=== PATIENT | female | born 1980 | race Caucasian/White ===

== ENCOUNTER 2024-11-03 07:36 | Outpatient (CLI) | payer OTHER, SELFPAY ==
--- NOTE | ~2024-11-03 | MR_ITS ---
EXAMINATION: MR brain/brain stem wo con DATE: 11/03/2024 09:58 INDICATION: Frequent headaches TECHNIQUE: Magnetic resonance imaging (MRI) of the brain and brainstem was performed without intraven ous contrast. Sequences included sagittal and axial T1-weighted SE, axial diffusion-weighted FS SE, a xial T2*-weighted GRE, axial T2-weighted FLAIR, and axial T2-weighted FSE. Apparent diffusion coeffic ient (ADC) maps were created. COMPARISON: None. FINDINGS: There are no areas of restricted diffusion to suggest acute infarction. No intracranial hemorrhage or abnormal intracranial mass lesion. Single small focus of nonspecific increased T2-weighted signal in tensity in the right frontal lobe white matter which is within normal limits for age. There are no in traparenchymal signal abnormalities seen on the other pulse sequences. The ventricles are symmetric a nd normal in size. There are no abnormal extra-axial fluid collections. Flow voids are seen in the ce rebral arteries on the T2-weighted sequences consistent with their expected patency. Right vertebral artery is dominant. Visualized orbits and soft tissues are unremarkable. Instrumented C5-C6 anterior spinal fusion. IMPRESSION: 1. Normal for age brain. No acute intracranial process. Reviewed, dictated and finalized at location B.
== END 2024-11-03 07:37 | disposition home or self-care (01) ==
PROVIDERS: Visit Provider Internal Medicine
DX: R51.9 Headache, unspecified (principal)
CPT/HCPCS: 70551

== ENCOUNTER 2024-11-17 16:30 | Emergency (ER) | payer OTHER, SELFPAY ==
--- OUTSIDE RECORDS SUMMARY | 2024-11-17 16:33 | XMS_ITS | Clinical Summary ---
Author Organization [facility] Address [address] [place] [address] Care Team Providers Care Literature Professor Name Role Phone Yordy Lundberg NP Primary Care Provider [phone] Allergies Active Allergy Reactions Criticality Noted Date Comments Tramadol Stomach upset High 08/27/2019 Cramping of the stomach. Medications topiramate (TOPAMAX) 25 mg tabletIndicatio ns:Other headache syndrome Take 1 tablet (25 mg total) by mouth nightly for 7 days, THEN 1 tablet (25 mg total) 2 (two) times a day for 7 days, THEN 2 tablets (50 mg total) 2 (two) times a day. 261 tablet 5 01/23/20 25 Active SUMAtriptan (IMITREX) 50 mg tabletIndicatio ns:Migraine Take 0.5 tablets (25 mg total) by mouth once as needed for migraine (headache) May repeat one time after 2 hours if needed. 9 tablet 5 5 11/10/19 26 Active levETIRAcetam (KEPPRA) 1,000 mg tablet Take 1,000 mg by mouth 2 (two) times a day. 11/10/19 25 Discontinu ed(Therapy completed) oxyCODONE-aceta minophen (PERCOCET) 5-325 mg per tabletIndicatio ns:Pain Take 1-2 tablets by mouth every 6 (six) hours as needed for pain (1 tablet for mild to moderate pain or 2 tablets for severe pain). 6 tablet 8 11/10/19 25 Discontinu ed(Therapy completed) ibuprofen (ADVIL,MOTRIN) 600 mg tablet Take 1 tablet (600 mg total) by mouth 3 (three) times a day as needed for pain. 30 tablet 8 11/10/19 25 Discontinu ed(Therapy completed) benzonatate (TESSALON) 200 mg capsule as needed 5 11/10/19 25 Discontinu ed(Therapy completed) HYDROcodone-marija taminophen (NORCO) 5-325 mg per tablet as needed 5 11/10/19 25 Discontinu ed(Alterna te therapy) methylPREDNISol one (MEDROL DOSEPACK) 4 mg Dosepack 5 11/10/19 25 Discontinu ed(Therapy completed) Active Problems Problem Noted Date Diagnosed Date Family history of colon cancer 05/29/2024 Encounter for screening colonoscopy 05/29/2024 Numbness and tingling of hand 09/23/2023 Encounters Date Type Department Care Team Description 11/16/2024 Telephone [facility] [address] [place] [address] 4th [address] [place] [phone] Sylvia Bear Med Refill 11/09/2024 10:[address] [facility] [address] [place] [id number] New daily persistent headache 11/09/2024 8:30 AM CDT Office [facility] [address] [place] [address] 4th [address] [place] [phone] Celine Oliver MD Other headache syndrome (Primary Dx); Closed fracture of skull, unspecified bone, initial encounter (HCC) 09/25/2024 9:00 AM CDT Lab [facility] Metabolism and Lipid [address] [place] [address] [place] [address] [place] [phone] Elevated antinuclear antibody (MC) level; Hair loss 09/25/2024 8:00 AM CDT Office Visit [facility] [address] [place] [address] [place] [address] Janette Ritter NP Hair loss (Primary Dx); Elevated antinuclear antibody (MC) level from Last 3 Months Surgical History Surgery Date Site/Laterality Comments CERVICAL FUSION NECK SURGERY 07/08/2016 - 07/07/2017 [place], [place] ANKLE SURGERY 07/08/2018 - 07/07/2019 Right [facility] ARM SURGERY 07/08/2019 - 07/07/2020 Right SAY[facility] Moore GALLBLADDER SURGERY 07/08/2023 - 07/07/2024 [place], [place] Medical History Medical History Date Comments Seizures (HCC) Family History Medical History Relation Name Comments Tuberculosis Brother Cancer Father Hypertension Father Relation Name Status Comments Brother Father Social History Tobacco Use Types Packs/Day Years Used Date Smoking Tobacco: Former Cigarettes 1 15 Smokeless Tobacco: Never Tobacco Cessation:Counseling Given: Not Answered Comments:Patient currently vapes. Hunger Vital Sign Answer Date Recorded Within the past 12 months, y ou worried that your food would run out before you got the money to buy more. Never true 11/10/19 25 Within the past 12 months, t he food you bought just didn't last and you didn't have money to get more. Never true 11/09/2024 Comments No Sex and Gender Information Value Date Recorded Sex Assigned at Not on file Legal Sex Female 4:32 AM CDT Gender Identity Not on file Sexual Orientation Not on file Obstetrics History Last Filed Vital Signs Vital Sign Reading Time Taken Comments Blood Pressure 112/81 11/09/2024 8:20 AM CDT Pulse 71 11/09/2024 8:20 AM CDT Temperature 36.7 C (98.1 F) 12/26/2017 4:36 AM CDT Respiratory Rate 16 11/09/2024 8:20 AM CDT Oxygen Saturation 98% 11/09/2024 8:20 AM CDT Inhaled Oxygen Concentration - - Weight 79.4 kg (175 lb) 11/09/2024 8:20 AM CDT Height 157.5 cm (5' 2 ) 11/09/2024 8:20 AM CDT Body Mass Index 32.01 11/09/2024 8:20 AM CDT Plan of Treatment Upcoming Encounters Date Type Department Care Team (Late st Contact Info) Description 12/18/2024 8:30 AM CDT Hospital Encounter [facility] [address] [place] [address] Dipika Deshpande MD [address] [place] [address] 12/18/2024 8:30 AM CDT - 12/18/2024 9:00 AM CDT Surgery [facility] [address] [place] [address] Dipika Deshpande MD [address] [place] [address] [address] [place] [address] COLONOSCOPY Scheduled Procedures Name Priority Associated Diagnoses Date/Ti me COLONOSCOPY Family history of colon cancer Encounter for screening colonoscopy 12/18/2024 8:30 AM CDT Health Maintenance Due Date Last Done Comments Breast Cancer Screening-Mammogram 1982 Cervical Cancer Screening 1982 Depression Screening 1982 Hepatitis C Screening 1982 Varicella Vaccines (1 of 2 - 13+ 2-dose series) 1995 DTaP/Tdap/Td Vaccine (5 - Tdap) 09/03/1997 09/02/1997, 05/28/1985, 07/31/1983, Additional history exists Regular Well Visit/Exam 18-64 2000 Influenza Vaccine (Season Ended) 2025 Hepatitis B Screening Completed 08/20/2000 , 04/17/2000, 02/12/2000 HPV Vaccines Aged Out No longer eligi ble based on patient's age to complete this topic Pneumococcal vaccine <65 Aged Out No longer eligible based on patient's age to complete this topic Procedures Procedure Name Priority Date/Time Associated Diagnosis Comments EGFR Routine 11/09/2024 10:34 AM CDT New daily persistent headache BASIC METABOLIC PANEL Routine 11/09/2024 10:34 AM CDT New daily persistent headache TSH Routine 09/25/2024 9:11 AM CDT Elevated antinuclear antibody (MC) level Hair loss from Last 3 Months Results * eGFR (11/09/2024 10:34 AM CDT) eGFR >90 >=60 mL/min/1. 73 m2 Comment: Interpretive Data Reference Interval Normal >/= 90 mL/min/1.73m2 Mildly decreased* 60 - 89 mL/min/1.73m2 Mildly to moderately decreased 45 - 59 mL/min/1.73m2 Moderately to severely decreased 30 - 44 mL/min/1.73m2 Severely decreased 15 - 29 mL/min/1.73m2 Kidney Failure < 15 mL/min/1.73m2 *Relative to young adult level Estimated glomerular filtration rate is determined by the 2020 CKD-EPI equation recommended by the National Kid[employer] (A Unifying Approach to GFR Estimation: Recommendations of the NKF-ASK Task Force on Reassessing the Inclusion of Race in Diagnosing Kidney Disease, JASN 2020). The CKD-EPI equation should not be used for patients with unstable renal function and has not been validated in children and those over 70. Current interpretive data was last reviewed 2021. Blood 11/09/2024 10:3 4 AM CDT 11/09/2024 11:53 AM CDT Celine Oliver MD LAB BLOOD ORDERABLES Fin al Result [facility] Department [place] [address] * Basic metabolic panel (11/09/2024 10:34 AM CDT) Sodium 140 135 - 145 mmol/L Potassium, pl 4.5 3.3 - 4.9 mmol/L [facility] Comment:Hemolyzed; Potassium value may be falsely elevated by as much as 0.3-0.5 mmol/L. Suggest redraw and reanalysis. Chloride 102 97 - 110 mmol/L [facility] CO2 29 22 - 32 mmol/L [facility] Anion gap 9 2 - 15 mmol/L [facility] BUN 15 6 - 25 mg/dL [facility] Creatinine 0.71 0.60 - 1.10 mg/dL [facility] Glucose 81 70 - 199 mg/dL [facility] Comment: Interpretive Data Fasting glucose >/= 126 mg/dl is diagnostic for diabetes. Fasting is defined as no caloric intake for at least 8 hours. Fasting glucose between 100 mg/dl to 125 mg/dl is diagnostic of prediabetes. In a patient with classic symptoms of hyperglycemia or hyperglycemic crisis, a random glucose >/= 200 mg/dl is diagnostic for diabetes. In the absence of unequivocal hyperglycemia, results should be confirmed by repeat testing. The classification and Diagnosis of Diabetes Diabetes Care 2021; 46: S19-S40. Current interpretive data was last revised 2022. Calcium 9.9 8.5 - 10.3 mg/dL [facility] Blood 11/09/2024 10:3 4 AM CDT 11/09/2024 11:49 AM CDT Narrative [facility] - 11/09/2024 12:24 PM CDT Has the patient fasted?->No us Celine Oliver MD LAB BLOOD ORDERABLES Fin al Result [facility] [place] [address] * TSH (09/25/2024 9:11 AM CDT) TSH (Thyrotropin) 0.93 0.27 - 4.20 uIU/mL [facility] Blood 09/25/2024 9:11 AM CDT 09/25/2024 9:31 AM CDT us Janette Ritter NP LAB BLOOD ORDERABLES Final Result [facility] from Last 3 Months Insurance [employer] [facility] HMO Care Teams Literature Professor Relationship Specialty Start Date End Date Yordy Lundberg NP [address] [place] [address] [place] [address] PCP - General Pain Management 05/26/24
--- OUTSIDE RECORDS SUMMARY | 2024-11-17 16:33 | XMS_ITS | Data Portability ---
[facility] Address [address] [place] [address] Assessment No assessment recorded. Plan of Treatment Reminders Order Date Submit Date Provider Last Modified By Organization Details Last Modified Time Details Appointments None recorded. Lab lh + FSH, serum 2023 024 [facility], [address] [place] [address], [address], [place], [address], 4 13:12:13 estradiol, serum 2023 024 [facility], [address] [place] [address], [address], [place], [address], 4 13:12:12 cytology report, thin prep, smear or scraping, cervical or vaginal 2023 024 [facility], [address] [facility], [address], [place], [address], 4 19:08:45 vaginal pathogens panel, FARA+probe, vaginal fluid 2023 024 [facility], [address] [facility], [address], [place], [address], 4 08:31:01 Referral orthopedic surgeon referral 2022 023 [facility], [address], [place], [address], 4 09:46:51 orthopedic surgeon referral 2022 023 [facility], [address], [place], [address], 3 12:43:44 employee communications specialist referral 2022 023 [email or web address] Stephon Ceron DPM, [address], [place], [address], 3 11:41:37 physical therapist referral 2021 022 [facility], [address] [place], [address], 3 16:37:48 bariatric surgery referral 2021 022 [email or web address] Kashif Graham, [address] [place], [address], 3 13:02:[address]/dietiti an referral [address] 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 Surgeries None recorded. Imaging MAMMO, diagnostic , digital, bilateral 2022 023 [facility]), [address] [place], [address], 3 13:05:54 Medication Orders metronidaz ole 500 mg tablet 2023 024 [facility], [address] [place], [place], [id number], 4 13:44:59 fluticason e propionate 50 mcg/actuat ion nasal spray,susp ension 2022 023 [facility], [address] [place], [place], [id number], 4 16:29:14 Sinus Wash Neti Pot with packet 2022 023 [facility], [address] [place] [address], [id number], 3 13:01:45 ibuprofen 800 mg tablet 2022 023 [facility], [address] [place] [address], [id number], 3 13:22:27 ibuprofen 800 mg tablet 2021 022 [facility], [address] [place] [address], [id number], 2 13:31:21 cyclobenza magno 5 mg tablet 2021 022 [facility], [address] [place] [address], [id number], 3 11:43:17 levetirace lowery 500 mg tablet 2021 022 [facility], [address] [place] [address], [id number], 2 13:31:20 Patient TargetsNo targets recorded. Patient Instructions Encounter Date Encounter Id Patient Instructions Last Modified By Organization Details Last Modified Time 02/05/2022 [id number] neck pain: care instructions [email or web address] Not available 02/05/2022 13:27:31 epilepsy: care instructions [email or web address] Not available 02/05/2022 13:27:31 abnormal weight gain: care instructions [email or web address] Not available 02/05/2022 13:27:31 11/12/2022 [id number] A healthy lifestyle: care instructions [email or web address] Not available 11/12/2022 12:01:10 06/18/2023 [id number] When You Want to Lose Weight: Care Instructions [email or web address] Not available 06/18/2023 12:46:31 A healthy lifestyle: care instructions [email or web address] Not available 06/18/2023 12:46:31 08/12/2023 [id number] bacterial vaginosis: care instructions [email or web address] Not available 08/12/2023 13:25:31 body mass index: care instructions Not available 08/12/2023 13:25:31 learning about healthy weight Not available 08/12/2023 13:25:31 Reason for Referral Bariatric Surgery Referral f or Abnormal weight gain Referring Physician: [facility], Encounter Date: 02/05/2022 Securities Dealer/dietitian Refer ral for Abnormal weight gain Obesity Referring Physician: [facility], Encounter Date: 02/05/2022 Physical Therapist Referral for Neck pain Chronic neck pain Referring Physician: [facility], Encounter Date: 02/05/2022 Financial Services Manager Referral for Pain in toe Pain left great toe Referring Physician: [facility], Encounter Date: 11/12/2022 Orthopedic Surgeon Referral for History of fracture pain/swelling post ankle fracture repair Referring Physician: [facility], Encounter Date: 03/26/2023 Orthopedic Surgeon Referral for Pain of joint of wrist Referring Physician: [facility], Encounter Date: 06/18/2023 Results Created Date Observation Date Name Description Value Unit Range Abnormal Flag Note LastModifiedBy Organization Detail LastModifiedTime 08/12/19 24 08/14/2023 NUA B VAGIN ITIS PLUS (VG+) atopobium vaginae Low - 0 score Not Available [facility] ([facility]) [address], [place], [address], 08/14/2023 08:31:01 08/12/19 24 08/14/2023 NUSWA B VAGIN ITIS PLUS (VG+) bvab 2 Low - 0 score Not Available [facility] ([facility]) [address], [place], [address], 08/14/2023 08:31:01 08/12/19 24 08/14/2023 NUSWA B VAGIN ITIS PLUS (VG+) megasphaera 1 Low - 0 score Calcu late total score by denise martell the 3 indiv idual bacte rial vagin osis (BV) marke r score s toget her. Total score is inter prete d as follo ws: Total score 0-1: Indic ates the absen ce of BV. Total score 2: Indet ermin ate for BV. Addit ional clini felipa data shoul d be evalu ated to estab star a diagn osis. Total score 3-6: Indic ates the prese nce of BV. This test was devel oped and its perfo rmanc e toma cteri stics deter mined by [employer]. It has not been clear ed or appro elham by the Food and Drug Admin istra tion. Not Available [facility] ([facility]) [address] [place], [address], 08/14/2023 08:31:01 08/12/19 24 08/14/2023 NUSWA B VAGIN ITIS PLUS (VG+) rody albicans, FARA Negati ve negati ve Not Available [facility] ([facility]) [address] [place], [address], 08/14/2023 08:31:01 08/12/19 24 08/14/2023 NUSWA B VAGIN ITIS PLUS (VG+) rody glabrata, FARA Negati ve negati ve Not Available [facility] ([facility]) [address] [place], [address], 08/14/2023 08:31:01 08/12/19 24 08/14/2023 NUSWA B VAGIN ITIS PLUS (VG+) trich vag by FARA Negati ve negati ve Not Available [facility] ([facility]) [address] [place], [address], 08/14/2023 08:31:01 08/12/19 24 08/14/2023 NUSWA B VAGIN ITIS PLUS (VG+) chlamydia trachomatis, FARA Negati ve negati ve Not Available [facility] ([facility]) [address], [place], [address], 08/14/2023 08:31:01 08/12/19 24 08/14/2023 NUSWA B VAGIN ITIS PLUS (VG+) neisseria gonorrhoeae, FARA Negati ve negati ve Not Available [facility] ([facility]) [address], [place], [address], 08/14/2023 08:31:01 08/12/19 24 08/13/2023 IGP, APTIM A HPV, RFX 16/18 ,45 HPV aptima Negati ve negati ve This nucle ic acid ampli ficat ion test detec ts fourt een high- risk HPV types (16,1 8,31, 33,35 ,39,4 5,51, 52,56 ,58,5 9,66, 68) witho ut diffe renti ation . Not Available [facility] ([facility]) [address], [place], [address], 08/14/2023 19:08:45 08/12/19 24 08/14/2023 IGP, APTIM A HPV, RFX 16/18 ,45 diagnosis: Commen t NEGAT RAFAEL FOR INTRA EPITH ELIAL LESIO N OR STEFANY SARABIA . Not Available [facility] ([facility]) [address], [place], [address], 08/14/2023 19:08:45 08/12/19 24 08/14/2023 IGP, APTIM A HPV, RFX 16/18 ,45 specimen adequacy: Commen t Satis facto ry for evalu ation . Endoc ervic al and/o r squam ous metap lasti c cells (endo cervi felipa compo nent) are prese nt. Not Available [facility] ([facility]) [address], [place], [address], 08/14/2023 19:08:45 08/12/19 24 08/14/2023 IGP, APTIM A HPV, RFX 16/18 ,45 clinician provided ICD10: Radha morgan R23.2 Z01.4 11 Not Available [facility] ([facility]) [address] [place], [address], 08/14/2023 19:08:45 08/12/19 24 08/14/2023 IGP, APTIM A HPV, RFX 16/18 ,45 performed by: Radha maldonado, Jonas morgan (ASCP ) Not Available [facility] ([facility]) [address] [place], [address], 08/14/2023 19:08:45 08/12/19 24 08/14/2023 IGP, APTIM A HPV, RFX 16/18 ,45 . . Not Available [facility] ([facility]) [address] [place], [address], 08/14/2023 19:08:45 08/12/19 24 08/14/2023 IGP, APTIM A HPV, RFX 16/18 ,45 note: Radha morgan The Pap smear is a scree kyle test desig mayra to aid in the detec tion of chevy ligna nt and malig nant condi tions of the uteri ne cervi x. It is not a diagn ostic proce dure and shoul d not be used as the sole means of detec ting cervi felipa cance r. Both false -posi tive and false -nega tive repor ts do occur . Not Available [facility] ([facility]) [address] [place], [address], 08/14/2023 19:08:45 08/12/19 24 08/14/2023 IGP, APTIM A HPV, RFX 16/18 ,45 HPV genotype reflex Radha morgan Crite sarah not met, HPV Genot ype not perfo rmed. Not Available [facility] ([facility]) [address] [place], [address], 08/14/2023 19:08:45 08/13/19 24 08/14/2023 ESTRA DIOL estradiol 195.0 pg/mL Adult Femal e Range Folli cular phase 12.5 - 166.0 Ovula tion phase 85.8 - 498.0 Lutea l phase 43.8 - 211.0 Postm enopa usal <6.0 - 54.7 Pregn milana 1st trime ster 215.0 - >4300 .0 Carl ECLIA metho dolog y Not Available [facility] ([facility]) [address] [place], [address], 08/14/2023 13:12:12 08/13/19 24 08/14/2023 FSH AND LH LH 7.7 mIU/m L Adult Femal e Range Folli cular phase 2.4 - 12.6 Ovula tion phase 14.0 - 95.6 Lutea l phase 1.0 - 11.4 Postm enopa usal 7.7 - 58.5 Not Available [facility] ([facility]) [address] [place], [address], 08/14/2023 13:12:12 08/13/19 24 08/14/2023 FSH AND LH FSH 3.6 mIU/m L Adult Femal e Range Folli cular phase 3.5 - 12.5 Ovula tion phase 4.7 - 21.5 Lutea l phase 1.7 - 7.7 Postm enopa usal 25.8 - 134.8 Not Available [facility] ([facility]) [address] [place], [address], 08/14/2023 13:12:12 04/12/20 23 04/12/2023 raine NEWMAN No observ ation record ed. [facility] [address] [place], [address], 04/16/2023 08:51:27 04/12/20 23 04/12/2023 MAMMO , diagn ostic , digit al, bilat eral No observ ation record ed. [address] [place], [address], 04/12/2023 21:21:12 01/24/20 24 01/24/2024 XR, ankle No observ ation record ed. [address] [place], [address], 01/25/2024 13:04:47 Result Notes None recorded. Problems Name Problem SNOMED Code Status Onset Date Resolution Date Notes Provider Name and Address Organization Details Recorded Time Seizure disorder 368248352 Active 2020 Le Parikh MD Attn: Jay martell,[address] [place], [address], [place] [facility] 15:05:11 Paresthes ia 25729879 Active 2020 Le Parikh MD Attn: Jay martell,[address] [place], [address], [place] [facility] 15:05:33 Pain of joint of wrist 260390356 Active 2020 Le Parikh MD Attn: Jay martell,[address] [place], [address], [place] [facility] 15:05:53 Eruption 285330827 Active 2020 inguinal region Le Parikh MD Attn: Jay martell,[address] [facility], [place], [address], [place] 15:07:26 Gastroeso phageal reflux disease 994646365 Active 2020 Le Parikh MD Attn: Jay martell,[address] [place], [address], [place] [facility] 15:08:38 Abnormal weight gain 172669718 Active 2020 Le Parikh MD Attn: Accountin g,[address] [facility], [place], [address], [place] [facility] 15:14:43 Fatigue 68344873 Active 2020 Le Parikh MD Attn: Accountin g,[address] [facility], [place], [address], [place] [facility] 1 15:15:18 Insomnia 795085564 Active 2020 Le Parikh MD Attn: Accountin g,[address] [facility], [place], [address], [place] [facility] 15:17:03 Overweigh t 536258485 Active 2020 Le Parikh MD Attn: Accountin g,[address] [facility], [place], [address], [place] [facility] 15:22:22 Medicatio n monitorin g Active 2020 Le Parikh MD Attn: Accountin g,[address] [facility], [place], [address], [place] [facility] 1 10:33:12 History of substance abuse 821736514 Active 2021 Le Parikh MD Attn: Accountin g,[address] [facility], [place], [address], [place] [facility] 2 17:00:35 Obesity 352039406 Active 2021 Le Parikh MD Attn: Accountin g,[address] [facility], [place], [address], [place] [facility] 2 17:07:57 Neck pain 91254445 Active 2021 Le Parikh MD Attn: Accountin g,[address] [facility], [place], [address], [place] [facility] 2 13:22:56 Pain in toe 903553304 Active 2022 Le Parikh MD Attn: Jay martell,[address], [place], [address], [place] [facility] 3 11:58:18 Mass of right breast 612765732357 76827 Active 2022 Le Parikh MD Attn: Jay martell,[address] [facility], [place], [address], [facility] - [facility] 3 12:37:08 History of fracture 847348322 Active 2022 Right ankle Le Parikh MD Attn: Jay martell,[address] [facility], [place], [address], [facility] - [facility] 3 12:41:13 Nasal congestio n 11570459 Active 2022 Le Parikh MD Attn: Jay martell,[address] [facility], [place], [address], [facility] - [facility] 3 12:48:09 Problem Notes None recorded. Procedures Surgical History None recorded. Imaging Results Imaging Date Name Status LastModified by Organiz ation Details LastModified Time 04/12/2023 US, breast completed [facility] [address] [place], [address], 04/16/2023 08:51:27 04/12/2023 MAMMO, diagnostic, digital, bilateral completed [address] [place], [address], 04/12/2023 21:21:12 01/24/2024 XR, ankle completed [address] [place], [address], 01/25/2024 13:04:47 Procedure Notes None recorded. Medical Equipment None Reported. Allergies No known drug allergies Medications Name Sig Start Date Stop Date Status Note LastModified by Organization Details LastModified Time amoxicillin 500 mg capsule TAKE 1 CAPSULE BY MOUTH 4 TIMES DAILY UNTIL FINISHED active Not Available Not Available No t Available venlafaxine ER 37.5 mg capsule,ext ended release 24 hr 04/03 completed Not Available Not Available Not Available acetaminoph en 325 mg tablet PLEASE SEE ATTACHED FOR DETAILED DIRECTION S active Not Available Not Available No t Available prednisone 10 mg tablet 04/03 completed Not Available Not Available Not Available venlafaxine ER 75 mg capsule,ext ended release 24 hr 08/07 completed Not Available Not Available Not Available lamotrigine 200 mg tablet 04/03 completed Not Available Not Available Not Available clindamycin HCl 300 mg capsule Take 1 capsule every 6 hours by oral route after meals for 7 days. 02/05 completed Not Available Not Available Not Available trazodone 50 mg tablet 08/07 completed Not Available Not Available Not Available polyethylen e glycol 3350 17 gram oral powder packet 04/03 completed Not Available Not Available Not Available cetirizine 10 mg tablet 04/03 completed Not Available Not Available Not Available azithromyci n 250 mg tablet TAKE 2 TABLETS BY MOUTH TODAY, THEN TAKE 1 TABLET DAILY FOR 4 DAYS 02/05 completed Not Available Not Available Not Available ibuprofen 800 mg tablet TAKE 1 TABLET BY MOUTH EVERY 6 TO 8 HOURS NEEDED active Not Available Not Available No t Available fluconazole 150 mg tablet 11/12 completed Not Available Not Available Not Available levetiracet am 500 mg tablet TAKE ONE TABLET BY MOUTH EVERY DAY active Not Available Not Available No t Available meloxicam 15 mg tablet TAKE 1 TABLET BY MOUTH EVERY DAY active Not Available Not Available No t Available sucralfate 1 gram tablet 04/03 completed Not Available Not Available Not Available quetiapine 200 mg tablet 04/03 completed Not Available Not Available Not Available venlafaxine ER 150 mg capsule,ext ended release 24 hr 08/07 completed Not Available Not Available Not Available penicillin V potassium 500 mg tablet TAKE ONE TABLET BY MOUTH FOUR TIMES DAILY FOR 7 DAYS 11/12 completed Not Available Not Available Not Available metronidazo le 500 mg tablet TAKE ONE TABLET BY MOUTH EVERY TWELVE HOURS FOR 7 DAYS active Not Available Not Available No t Available omeprazole 40 mg capsule,del ayed release Take 1 capsule every day by oral route before meals. 04/03 completed Not Available Not Available Not Available tramadol 50 mg tablet TAKE 1 TABLET BY MOUTH EVERY 6 HOURS NEEDED active Not Available Not Available No t Available quetiapine 100 mg tablet 04/03 completed Not Available Not Available Not Available amoxicillin 500 mg tablet TAKE 1 TABLET BY MOUTH TWICE A DAY WITH FOOD UNTIL GONE 02/05 completed Not Available Not Available Not Available ketorolac 10 mg tablet Take 1 tablet every 6 hours by oral route as needed for 5 days. 11/12 completed Not Available Not Available Not Available risperidone 2 mg tablet 08/07 completed Not Available Not Available Not Available levetiracet am 250 mg tablet 04/03 completed Not Available Not Available Not Available pantoprazol e 40 mg tablet,francesco yed release TAKE 1 TABLET BY MOUTH EVERY DAY active Not Available Not Available No t Available oseltamivir 75 mg capsule TAKE 1 CAPSULE BY MOUTH TWICE A DAY active Not Available Not Available No t Available nystatin 100,000 unit/gram topical cream APPLY TO THE AFFECTED AREA(S) BY TOPICAL ROUTE 2 TIMES PER DAY 04/03 completed Not Available Not Available Not Available hydroxyzine HCl 25 mg tablet 04/03 completed Not Available Not Available Not Available acetaminoph en 300 mg-codeine 60 mg tablet 11/17 completed Not Available Not Available Not Available zolpidem 5 mg tablet Take 1 tablet every day by oral route at bedtime. 04/03 completed Not Available Not Available Not Available hydroxyzine HCl 10 mg tablet 04/03 completed Not Available Not Available Not Available fluticasone propionate 50 mcg/actuati on nasal spray,suspe nsion Two puffs in each nostril daily 2022 active Not Available Not Available Not Avai lable risperidone 1 mg tablet 04/03 completed Not Available Not Available Not Available amoxicillin 875 mg-alison m clavulanate 125 mg tablet TAKE 1 TABLETBY MOUTH 2 TIMES A DAY X 7 DAYS active Not Available Not Available No t Available oxycodone 5 mg tablet TAKE 1 TABLET BY MOUTH EVERY 4 HOURS NEEDED FOR MODERATE PAIN (PAIN SCALE 4 TO 6) active Not Available Not Available No t Available hydroxyzine pamoate 25 mg capsule 04/03 completed Not Available Not Available Not Available neomycin-po lymyxin-hyd rocort 3.5 mg-10,000 unit/mL-1 % ear drops,susp INSTILL 3 DROPS IN BOTH EARS 4 TIMES A DAY FOR 7 DAYS active Not Available Not Available No t Available Daily-Bozena tablet 04/03 completed Not Available Not Available Not Available cyclobenzap rine 5 mg tablet TAKE ONE TABLET BY MOUTH THREE TIMES DAILY NEEDED 11/12 completed Not Available Not Available Not Available nitrofurant oin monohydrate /macrocryst als 100 mg capsule 04/03 completed Not Available Not Available Not Available duloxetine 30 mg capsule,del ayed release 04/03 completed Not Available Not Available Not Available duloxetine 60 mg capsule,del ayed release 04/03 completed Not Available Not Available Not Available chlorhexidi ne gluconate 0.12 % mouthwash 11/17 completed Not Available Not Available Not Available quetiapine 50 mg tablet 04/03 completed Not Available Not Available Not Available quetiapine ER 150 mg tablet,exte nded release 24 hr 04/03 completed Not Available Not Available Not Available Sinus Wash Neti Pot with packet Use one packet twice daily three times a week x 1 month 2022 active Not Available Not Available Not Avai lable Daily-Bozena (with folic acid) 400 mcg tablet 11/12 completed Not Available Not Available Not Available Vitals Date Recorded Body height Body mass index (BMI) Body weight Body temperature Heart rate Oxygen saturation Oxygen saturation in Arterial blood by Pulse oximetry Systolic blood pressure Diastolic blood pressure Provider Name and Address Organization Details Last Updated DateTime 2 157.48 cm 34 kg/m2 91444.1 8 g 98.1 [degF] 79 /min 98 % 98 % 96 mm[Hg] 64 mm[Hg] Ramonita Sewell MA [facility] 2 12:22:01 Date Recorded Body height Body mass index (BMI) Body weight Body temperature Oxygen saturation Oxygen saturation in Arterial blood by Pulse oximetry Heart rate Systolic blood pressure Diastolic blood pressure Provider Name and Address Organization Details Last Updated DateTime 3 157.48 cm 33.7 kg/m2 09501 g 98 [degF] 98 % 98 % 83 /min 100 mm[Hg] 68 mm[Hg] Ramonita Sewell MA [facility] 3 11:48:06 Date Recorded Body height Body mass index (BMI) Body weight Heart rate Oxygen saturation Oxygen saturation in Arterial blood by Pulse oximetry Systolic blood pressure Diastolic blood pressure Provider Name and Address Organization Details Last Updated DateTime 3 157.48 cm 32 kg/m2 48536.6 6 g 88 /min 98 % 98 % 101 mm[Hg] 70 mm[Hg] Kimberley Zepeda MA [facility] 3 12:26:50 Date Recorded Body height Body mass index (BMI) Body weight Heart rate Body temperature Oxygen saturation Oxygen saturation in Arterial blood by Pulse oximetry Systolic blood pressure Diastolic blood pressure Provider Name and Address Organization Details Last Updated DateTime 3 157.48 cm 33.3 kg/m2 94858.8 1 g 73 /min 98 [degF] 98 % 98 % 110 mm[Hg] 76 mm[Hg] Ramonita Sewell MA [facility] 3 12:31:08 Date Recorded Body height Body mass index (BMI) Body weight Provider Name and Address Organization Details Last Updated DateTime 08/07/2023 157.48 cm 33.5 kg/m2 13723.4 g Stephy Obrien MA [facility] 08/07/2023 14:14:08 Date Recorded Body height Body mass index (BMI) Body weight Body temperature Oxygen saturation Oxygen saturation in Arterial blood by Pulse oximetry Heart rate Systolic blood pressure Diastolic blood pressure Provider Name and Address Organization Details Last Updated DateTime 4 157.48 cm 32.5 kg/m2 19542.6 5 g 98.1 [degF] 98 % 98 % 66 /min 112 mm[Hg] 66 mm[Hg] Stephy Obrien MA [facility] 4 12:51:04 Social History Question Answer Notes LastModified by Organizat ion Details LastModified Time Tobacco Smoking Status Never Smoker Ramonita Sewell MA null, [facility] 11/17/2020 14:12:07 What Was The Date Of Your Most Recent Tobacco Screening? 08/12/2023 [email or web address] Information not available 08/12/2023 Has Tobacco Cessation Counseling Been Provided? No Information not available 11/12/2022 Sex: Female Functional Status Question Answer Note LastModified by Organization D etails LastModified Time Do you or have you ever used any other forms of tobacco or nicotine? No Information not available 11/12/2022 Mental Status None recorded. Family History Relationship Description Onset Age of this Age Resolved Age Notes LastModified by Organization Details LastModified Time Sister Diabetes mellitus [email or web address] Not available 2020 14:13:47 Medical History No medical history recorded. Gynecological History Statement/Question Response Flow Light Date of LMP 08/07/2023 Menses Monthly Y Duration of Flow (days) 4 Age at Menarche 19 Current Control Method Tubal Ligat ion Age at First Child 29 LMP Definite Obstetrics History GPAL:G 2 P 2 0 0 2 Type Value Full Term 2 Living 2 Total 2 Immunizations Vaccine Type Date Status Note Provider Nam e and Address Organization Details Recorded Time MMR 4 completed Stephy Obrien, [place], [place] [facility] 08/07/2023 14:06:06 DTP 4 completed Stephy Obrien, [place] [facility] 08/07/2023 14:06:06 DTP 3 completed Stephy Obrien, [place] [facility] 08/07/2023 14:06:06 DTP 3 completed Stephy Obrien, [place] - [facility] 08/07/2023 14:06:06 DTP 5 completed Stephy Obrien[place], [place] [facility] 08/07/2023 14:06:06 OPV 4 completed Stephy Ob[place], [place] [facility] 08/07/2023 14:06:06 OPV 3 completed Stephy Obrien, [place] [facility] 08/07/2023 14:06:06 OPV 3 completed Stephy Obrien, [place] - [facility] 08/07/2023 14:06:06 OPV 3 completed Stephy Obrien, [place] [facility] 08/07/2023 14:06:06 OPV 5 completed Stephy Obrien, [place] - [facility] 08/07/2023 14:06:06 Td (adult), 2 Lf tetanus toxoid, preservative free, adsorbed 8 completed Stephytete Obrien CHRISTIANA null, [place] - [facility] 08/07/2023 14:06:06 Hep B, adolescent or pediatric 1 completed Stephy Obrien CHRISTIANA null, [place] - [facility] 08/07/2023 14:06:06 Hep B, adolescent or pediatric 0 completed Stephy Obrien CHRIST[place]NA null, [place] - [facility] 08/07/2023 14:06:06 Hep B, adolescent or pediatric 0 completed Stephy Obrien CHRISTIANA null, [place] - [facility] 08/07/2023 14:06:06 Past Encounters Encounter ID Performer Location Encounter Start Date Encounter Closed Date Diagnosis/Indication Diagnosis SNOMED-CT Code Diagnosis ICD10 Code Diagnosis Note [id number] MD Amrit Mcgarry (Adult Med) [address] [place] [address]383-867 0 11/17/2020 13:38:08 11/21/2020 17:56:13 Pain of joint of wrist 863834124 M25.539 Seizure disorder 0181632 02 G40.909 Paresthesia 60426199 R20 .2 Eruption 783237612 R21 Gastroesop hageal reflux disease 929765204 K21.9 Abnormal weight gain 161 229303 R63.5 Fatigue 23868176 R53.83 Insomnia 404840767 G47.0 0 Overweight 601466177 E66 .3 [id number] MD Amrit Mcgarry (Adult Med) [address] [place] [address] 29146-951 0 03/30/2021 10:05:38 03/30/2021 12:28:17 [id number] MD Amrit Mcgarry (Adult Med) [address] [place] [address] 58292-721 0 04/03/2021 09:44:54 04/04/2021 12:15:27 Medication monitoring 210070443 Z51.81 [id number] MD Amrit Mcgarry (Adult Med) [address] [place] [address]55-992 0 07/18/2021 16:05:47 07/21/2021 11:52:26 History of substance abuse 406348280 F19.21 Pain of kartik int of wrist 964246864 M25.539 Obesity 651177546 E66.9 [id number] MD Amrit Harvey (Adult Med) [address] [place] [address] 50753-862 0 08/07/2021 16:52:10 08/07/2021 19:51:08 Cellulitis 220730036 L03.90 Tenderness on the left arm pit , but no definitive nodule or open drainage., discussed with patient , she agreed to try abs and pain pill a ordered. Avoid shaving for the mean time. She agreed to keep this office informed. in a few days. Carpal sirena afsaneh syndrome 41537112 G56.03 Wants cortisone shoot on the wrists today, but in light of possble cellulitis of left arm pit , advised to hold off cortisone shoot. [id number] MD Amrit Mcgarry (Adult Med) [address] [place] [address]67-415 0 02/05/2022 11:50:22 02/06/2022 12:02:35 Abnormal weight gain 079446293 R63.5 Neck pain 28018944 M54.2 Seizure disorder 8016140 02 G40.705 [id number] MD Amrit Mcgarry (Adult Med) [address] [place] [address] 60756-194 0 11/12/2022 11:32:10 11/20/2022 11:41:37 Obesity 467575276 E66.9 Pain in toe 991682634 M7 9.645 [id number] MD Amrit Mcgarry (Adult Med) [address] [place] [address] 31107[address]447 0 03/26/2023 12:12:38 03/28/2023 16:10:45 Neck pain 89021562 M54.2 Mass of right breast 107 9186557 5353416 N63.10 History of fracture 3910 57341 Z87.81 [id number] MD Amrit Mcgarry (Adult Med) [address] [place] [address] 06/18/2023 11:55:40 06/19/2023 16:19:56 Obesity 714469474 E66.9 Pain of kartik int of wrist M25.539 Nasal congestion 1723362 0 R09.81 [id number] Sweetie Jones MD [facility] (Adult Med) [address] [place] [address] 08/12/2023 12:26:02 08/14/2023 16:22:12 Non-menopausal hot flash 2912105400 37706 R23.2 Patient having hot flashes daily and waking up drenched in sweatWill test hormone levels today Routine gy necologic examination done 9410421739 9101 Z01.411 Sample taken for PAPWill call patient with resultsMam mogram due in 04/2024 Vaginal discharge 861867 006 N89.8 Take your antibiotic s as directed. Do not stop taking them just because you feel better. You need to take the full course of antibiotic s. Do not eat or drink anything that contains alcohol if you are taking metronidaz ole or tinidazole . Keep using your medicine if you start your period. Use pads instead of tampons while using a vaginal cream or suppositor y. Tampons can absorb the medicine. Wear loose cotton clothing. Do not wear nylon and other materials that hold body heat and moisture close to the skin. Do not scratch. Relieve itching with a cold pack or a cool bath. Do not wash your vaginal area more than once a day. Use plain water or a mild, unscented soap. Do not douche. Body mass index 30+ - obesity 128663492 Z68.32 BMI 32.5 Depression screening 171 575652 Z13.31 PHQ9- {{Negative Positive Mild Moder ate* Sever e}} (12 out of 27) Mental hea lth screening 968925124 Z13.39 GAD7- {{Negative Positive Mild Moder ate Severe *}} (15 out of 21) Health Concerns Section Related Observation LastModified by Organization Detai ls LastModified Time None Recorded Concern Status LastModified by Organization Details LastModified Time None Recorded Advance Directives Directive None Recorded Payers Encounter Date Sequence Insurance Name Policy Number Policy [place] Covered Member ID [place] Member ID Guarantor Name 02/05/2022 1 [employer] [place] AFTER 2020 (MEDICAID REPLACEMENT - HMO) Melanie Bolaños [id number] Melanie Bolaños 11/12/2022 1 [employer] [place] 2020 [place] - [place]MO) Melanie Bolaños [id number] Melanie Bolaños 03/26/2023 1 [employer] 2020 [place] - [place]MO) Melanie Bolaños [id number] Melanie Bolaños 06/18/2023 1 [employer] [place] 2020 [place] - [place]MO) Melanie Bolaños [id number] Melanie Bolaños 08/12/2023 2 [place] [facility] PUBLIC AID Melanie Bolaños [id number] Melanie Bolaños 08/12/2023 1 [employer] [id number] Melanie L Robin [id number] Melanie Bolaños Notes Date Note Type Note Provider Name and Address Organization Details Recorded Time 02/05/2022 text/html Right side of ne ck more painful. Pain radiates to upper back. Wants referral to bariatric surgeon Le Parikh MD Attn: [address] [place], [address], [facility] 02/05/2022 13:34:02 11/12/2022 text/html Two week history of pain in left great toe relieved by raising nail. Le Parikh MD Attn: [employer]ing[address] [place], [address], [facility] 11/12/2022 12:02:21 03/26/2023 text/html Tiny knot on rig ht that comes and goes for the past six months. Leaves discolouration on overlying skin. Requests med refill Le Parikh MD Attn: [employer]ing[address] [place], [address], [facility] 03/26/2023 13:10:34 06/18/2023 text/html Wants cortisone shots in her wrists. Has hard material that comes out of her nostrils periodically Le Parikh MD Attn: [address]ing[address] [facility], [place], [address], [facility] 06/18/2023 12:54:32 08/12/2023 text/html 43-year-old female here for Pap. Patient states does not remember when her last pap was, but states that she has never had an abnormal one. Patient does state that she had treatment for genital warts at age 20 but has never had an outbreaks since.Patient is c/o vaginal odor that has come up about 3 times in the last year. Denies having any discharge. She is also c/o sweating a lot in her vaginal area. She is also c/o hot flashes during the day. Has had irregular menses that only last a couple of days, last one was only 1 day long.Patient does state that her boyfriend does have some scab on his penis but he has not gotten checked. JOSE M MENEZES PA-C Attn: [address] [facility], [place], [address], [facility] 08/12/2023 13:25:56 OBGyn Episode No OBEpisode recorded.
--- OUTSIDE RECORDS SUMMARY | 2024-11-17 16:33 | XMS_ITS | Referral Summary ---
Author Organization [facility] Address [address] [place] [address] Care Team Providers Care Plant Protection Officer Name Role Phone Yordy Lundberg NP Primary Care Provider [phone]- [phone] Encounters Date Type Department Care Team Description 11/16/2024 Telephone [facility] [address] [place] [address] [facility] [address] [place] [phone] Sylvia Bear Med Refill 11/09/2024 10:15 AM CDT Lab [facility] [address] [place] [address] [place] [address] New daily persistent headache 11/09/2024 8:30 AM CDT Office [facility] [address] [place] [address] [facility] Floor [address] [place] [phone] Celine Oliver MD Other headache syndrome (Primary Dx); Closed fracture of skull, unspecified bone, initial encounter (HCC) 09/25/2024 9:00 AM CDT Lab [facility] Endocrinology Metabolism and Lipid [address] [place] [address] [place] [phone] Elevated antinuclear antibody (MC) level; Hair loss 09/25/2024 8:00 AM CDT Office Visit [facility] Rheumatology [facility] [address] [place] [phone] Janette Ritter NP Hair loss (Primary Dx); Elevated antinuclear antibody (MC) level from Last 3 Months Allergies Active Allergy Reactions Criticality Noted Date [...] 05/29/2024 Numbness and tingling of hand 09/23/2023 Social History Tobacco Use Types Packs/Day Years [...] on file Sexual Orientation Not on file Last Filed Vital Signs Vital Sign Reading [...] Description 12/18/2024 8:30 AM CDT Hospital Encounter [address] [address] Dipika Deshpande MD [address] [facility] [place] [address] 12/18/2024 8:30 AM CDT - 12/18/2024 9:00 AM CDT Surgery [address] [address]Dipika Abernathy MD [address] [facility] [place] [address] COLONOSCOPY Scheduled Procedures Name Priority Associated Diagnoses Date/Ti me COLONOSCOPY Family history of colon cancer Encounter for screening colonoscopy 12/18/2024 8:30 AM CDT Procedures Procedure Name Priority Date/Time Associated Diagnosis [...] of Race in Diagnosing Kidney Disease, JASN 202). The CKD-EPI equation should not be used for patients with unstable renal function and has not been validated in children and those over 70. Current interpretive data was last reviewed 2021. Blood 11/09/2024 10:3 4 AM CDT 11/09/2024 11:53 AM CDT us Celine Oliver MD LAB BLOOD ORDERABLES Fin al Result [facility] Department [place] [address] * Basic metabolic panel (11/09/2024 10:34 AM CDT) Pathologist [facility] Sodium 140 135 - 145 mmol/L Potassium, pl 4.5 3.3 - 4.9 mmol/L [facility] Comment:Hemolyzed; Potassium value may be falsely elevated by as much as 0.3-0.5 mmol/L. Suggest redraw and reanalysis. Chloride 102 97 - 110 mmol/L [facility] CO2 29 22 - 32 mmol/L [facility] Anion gap 9 2 - 15 mmol/L [facility] BUN 15 6 - 25 mg/dL [facility] Creatinine 0.71 0.60 - 1.10 mg/dL [facility] Glucose 81 70 - 199 mg/dL [facility] Comment: Interpretive Data Fasting glucose >/= 126 [...] 2022. Calcium 9.9 8.5 - 10.3 mg/dL [facility] Blood 11/09/2024 10:3 4 AM CDT 11/09/2024 11:49 AM CDT Narrative [facility] - 11/09/2024 12:24 PM CDT Has the patient fasted?->No us Celine Oliver MD LAB BLOOD ORDERABLES Fin al Result [facility] Department [place] [address] * TSH (09/25/2024 9:11 AM CDT) Pathologist [facility] TSH (Thyrotropin) 0.93 0.27 - 4.20 uIU/mL [facility] Blood 09/25/2024 9:11 AM CDT 09/25/2024 9:31 AM CDT Janette Ritter [facility] LAB BLOOD ORDERABLES Final Result [facility] from Last 3 Months Insurance [facility] Care Teams Plant Protection Officer Relationship Specialty Start Date End Date Yordy Lundberg NP [address] [place] [address] [place] [address] PCP - General Pain Management 05/26/24
--- OUTSIDE RECORDS SUMMARY | 2024-11-17 16:33 | XMS_ITS | Encounter Summary ---
Author Organization [facility] Healthcare Address [address] [place] [address] Care Team Providers Care Entry Level Management Name Role Phone Yordy Lundberg NP Primary Care Provider +1- [phone] Reason for Visit * Reason Onset Date Comments Med Refill 11/16/2024 Encounter Details Date Type Department Care Team (Late st Contact Info) Description 11/16/2024 Telephone [facility] [address] [place] [address] Health 4th Floor [address] [place] [phone] Sylvia Bear Med Refill Social History Tobacco Use Types Packs/Day Years Used Date Smoking Tobacco: Former Cigarettes 1 15 Smokeless Tobacco: Never Comments:Patient currently v apes. Hunger Vital Sign Answer Date Recorded Within [...] on file Sexual Orientation Not on file documented as of this encounter Miscellaneous Notes * Telephone Encounter - Sylvia Bear - 11/16/2024 2:19 PM CDT Patient called and ask if she can get a call back regarding a refill on medication SUMAtriptan (IMITREX)50 mg tablet. Patient also stated she has been having headaches for 2 days and the medication is not helping. Delores Ward documented in this encounter Plan of Treatment Upcoming Encounters Date Type Department Care Team (Late st Contact Info) Description 12/18/2024 8:30 AM CDT Hospital Encounter [facility] [address] [place] [address] Dipika Deshpande MD [address] [facility] [place] [address] 12/18/2024 8:30 AM CDT - 12/18/2024 9:00 AM CDT Surgery [address] [address] Dipika Deshpande MD [address] [place] [address] [address] [place] [address] COLONOSCOPY Scheduled Procedures Name Priority Associated Diagnoses Date/Ti me COLONOSCOPY Family history of colon cancer Encounter for screening colonoscopy 12/18/2024 8:30 AM CDT documented as of this encounter Visit Diagnoses Not on filedocumented in this encounter Care Teams Entry Level Management Relationship Specialty Start Date End Date Yordy Lundberg NP [address] [facility] [address] PCP - General Pain Management 05/26/24 documented as of this encounter
--- OUTSIDE RECORDS SUMMARY | 2024-11-17 16:33 | XMS_ITS | Clinical Summary ---
Author Organization [facility] Address [address] [place] [address] Care Team Providers Care Leather Colorer Name Role Phone Unavailable Primary Care Provider Unavailabl e Social History Tobacco Use Types Packs/Day Years Used Date Smoking Tobacco: Never Assessed Comments Unknown Sex and Gender Information Value Date Recorded Sex Assigned at Not on file Legal Sex Female 7:31 AM CDT Gender Identity Not on file Sexual Orientation Not on file Plan of Treatment Health Maintenance Due Date Last Done Comments Cervical Cancer Screening Pa p Smear (Age 30 to 64) Every 3 Years 1982 Annual Physical 1985 Hepatitis C 2000 DTaP, Tdap and Td Vaccines ( 1 - Tdap) 2001 Hepatitis B Vaccines (1 of 3 - 19+ 3-dose series) 2001 Cervical Cancer Screening Pa p with HPV Testing (Age 30 to 64) Every 5 Years 2012 Cervical Cancer Screening with HPV 2012 Mammogram Screening 2022 COVID-19 Vaccine ( - 2023-2 5 season) 2024 HPV Vaccines Aged Out No longer eligi ble based on patient's age to complete this topic Meningococcal B Vaccine Aged Out No l onger eligible based on patient's age to complete this topic Meningococcal Vaccine Aged Out No bel nick eligible based on patient's age to complete this topic Pneumococcal Vaccine: Pediat rics (0 to 5 Years) and At-Risk Patients (6 to 49 Years) Aged Out No longer eligible b ased on patient's age to complete this topic RSV Immunizations Under 20 Months Aged Out No longer eligible based on patient's age to complete this topic
--- OUTSIDE RECORDS SUMMARY | 2024-11-17 16:33 | XMS_ITS | Patient Health Record ---
Author Organization [facility] Address [address] [place] [address] Care Team Providers Care Weir Fisherman Name Role Phone Yordy Lundberg Primary Care Provider QuintanaSal rodriguezgilbert Aguayo [phone] Allergies No Known Allergies Results Component Value Reference Range Notes CMP 14 Comprehensive Metabol ic Panel* Reviewed date:05/21/2024 08:37:12 AM Interpretation: Performing Lab: Notes/Report: Lipid Panel* Reviewed date:05/21/2024 08:37:37 AM Interpretation: Performing Lab: Notes/Report: TSH+Free T4* Reviewed date:05/21/2024 08:38:13 AM Interpretation: Performing Lab: Notes/Report: Vitamin D, 25-Hydroxy* Reviewed date:05/21/2024 08:38:51 AM Interpretation: Performing Lab: Notes/Report: CBC With Differential/Platel et* Reviewed date:05/21/2024 08:39:16 AM Interpretation: Performing Lab: Notes/Report: Ferritin, Serum* Reviewed date:05/21/2024 08:41:15 AM Interpretation: Performing Lab: Notes/Report: Iron and TIBC* Reviewed date:05/21/2024 08:41:47 AM Interpretation: Performing Lab: Notes/Report: Vitamin B12 and Folate Reviewed date:05/21/2024 08:42:06 AM Interpretation: Performing Lab: Notes/Report: HIV Screen *HIV 1, 2 Ab, p24 Ag ([id number]) Reviewed date:05/21/2024 08:42:34 AM Interpretation: Performing Lab: Notes/Report: Reason For Referral Reason Increasing right ank le pain, hx of surgical fixation Diagnosis 1 Pain in right ankle and joints of right foot (M25.571) Referral Organization [facility] Referring Provider First Name Yordy Referring Provider Last Name Lundberg Referring Provider [facility] Referred Provider [facility] Referred Provider Specialty Orthopedic S kevinery General Notes TY Reed Stephanie N 03/10/2024 11:47:09 AM >Confirmed with Ally that they do accept [employer] PPO plans.Brianna RN, Stephanie N 03/10/2024 11:54:26 AM >Referral faxed to [facility].Brianna RN, Stephanie N 03/11/2024 01:47:35 PM >confirmed referral was successfully sent. Message sent and letter mailed with referral details. Clinical Notes [facility], Orthopedic Surgery , [address] [place] [address] [address], [address] , [place] [address], , Referral Priority Routine Reason Ingrown toenails Diagnosis 1 Ingrown toenail (L60 .0) Referral Organization [facility] Referring Provider First Name Yordy Referring Provider Last Name Toño Referring Provider [facility] markel Referred Provider Tony Burleson Referred Provider Specialty Podiatry General Notes PT HAS AETNA, TY Reed Stephanie N 04/24/2024 09:57:57 AM >referral faxed. Confirmation pending.Brianna RN, Stephanie N 04/24/2024 01:16:56 PM >fax was successful. Letter mailed and text/voice message sent notifying pt of referral. Portal message also sent, TY Reed Stephanie N 04/29/2024 10:18:58 AM >received a response from Dr. Burleson's office indicating that they do not accept self pay. Fax sent back to clarify that the patient does have [employer] COMM[employer]CIAL INSURANCE, and that a system error lists Self-pay. Copy of insurance card and insurance verification attached. Will refax referral in case previous one was discarded. Clinical Notes Dr. Tony Burleson, Podiatry , [facility] , [place] [address], , Referral Priority Routine Reason Hair loss, flushing, hormonal testing, PAP Diagnosis 1 Hair loss (L65.9) Diagnosis 2 Flushing (R23.2) Diagnosis 3 Cervical cancer scre ening (Z12.4) Referral Organization [facility] Referring Provider First Name Yordy Referring Provider Last Name Toño Referring Provider [facility] markel Referred Provider [facility] Referred Provider Specialty Review Coordinator General Notes Patient has Aet na Commercial InsuranceSee Attached insurance card, Yesenia Reed RN 05/19/2024 01:53:27 PM >referral faxed, confirmation pending., Yesenia Reed RN 05/19/2024 02:15:47 PM >referral was successfully faxed. Letter mailed and portal message sent with referral details. See logs. Clinical Notes Dr. Barbara Caruso MD, [facility] - Gynecology [address], [address], [place] [address] , [place], [address], [address], [place] [address], , fax: [phone] Referral Priority Routine Reason Strong family hx of gastric and colon cancer, requests referral/screening Diagnosis 1 Family history- stom ach cancer (Z80.0) Diagnosis 2 Family history of co bel cancer (Z80.0) Referral Organization [facility] Referring Provider First Name Yordy Referring Provider Last Name Toño Referring Provider [facility] markel Referred Provider [facility], astroenterology Referred Provider Specialty Gastroentero logy General Notes Patient has A [employer] Commercial Insurance See Attached Insurance Card, Yesenia Reed RN 05/19/2024 02:01:37 PM >Referral faxed. Confirmation pending.rBianna RN, Stephanie N 05/19/2024 02:32:52 PM >referral successfully faxed. Letter mailed and portal message sent with referral details., Yesenia Reed RN 05/22/2024 10:39:20 AM >Latesha De Los Santos received a call from [facility] indicating this request went there instead of the [place] location. Fax number obtained from the [place] location: [phone]. Will update record in eCW and refax.Brianna RN, Stephanie N 05/22/2024 10:42:14 AM >referral refaxed. Clinical Notes [facility], G astroenterology , [address] [place] [address], [address] , [place] [address], Referral Priority Routine Reason Headaches, butterfly type rash, hair loss, positive MC Diagnosis 1 Elevated antinuclear antibody (MC) level (R76.8) Referral Organization [facility] Referring Provider First Name Yordy Referring Provider Last Name Toño [facility]erred Provider [facility] Referred Provider Specialty Rheumatology General Notes PATIENT HAS AETNA COMMERCIAL INSURANCESEE ATTACHED INSURANCE CARD, Yesenia Reed RN 07/03/2024 10:57:13 AM >The [facility] website indicates they accept [employer] POS Choice II insurance. Referral has been faxed. Confirmation pending.Brianna RN, Stephanie N 07/06/2024 10:00:58 AM >fax was successful. Letter mailed to pt with referral details., Yesenia Reed RN 07/15/2024 11:52:47 AM >I spoke with staff at [facility]. Melanie has been scheduled for September 25 at 08:00am. She will receive a packet in the mail with the exact location address, the physicians name, and a medical history form for her to complete and bring with her to her appointment. She will also need her insurance card and ID. Clinical Notes [facility] Rheumatology, , [facility], [address] [place] [address], , Referral Priority Routine Referral Appointment Date 09/25/2024 Reason Daily headaches, age indeterminate skull fracture Diagnosis 1 New daily persistent headache (G44.52) Diagnosis 2 Closed fracture of s kull, unspecified bone, initial encounter (S02.91XA) Referral Organization [facility] Referring Provider First Name Yordy Referring Provider Last Name Toño Referring Provider [facility] Referred Provider [facility] Referred Provider Specialty Neurology General Notes BELEN NT HAS AETNA COMMERCIAL INSURANCESEE ATTACHMENT, IMAGING RECORDS TO FOLLOW ONCE AVAILABLE FROM ED VISIT, Yesenia Reed RN 06/24/2024 04:55:12 PM >referral faxed, confirmation pending. Forwarding to nursing manager for follow-up tomorrow.Sully RN, Jennifer 06/25/2024 09:48:08 AM >Spoke with Yo at [facility], they verified they did receive the referral. They report they will process it and stated that it may take up to a week or so for review.Brianna RN, Stephanie N 06/26/2024 09:00:11 AM > Notified Yordy Lundberg of the above timeframe. Per Tyrone, that timeframe is acceptable.Brianna RN, Stephanie N 07/06/2024 10:04:38 AM > A voice message was left for Melanie on Saturday, 07/03 (see telephone encounter), notifying her of the contact information for the [facility] department. a letter has been mailed to her home address with referral details as well. See letter logs.Brianna RN, Stephanie N 07/07/2024 01:40:56 PM >Attempted to contact the specialty care clinic to coordinate scheduling an appointment. The facility is closed today in observation of the holiday.Brianna RN, Stephanie N 07/15/2024 11:31:24 AM >Attempted to contact [facility]. Left on hold waiting to speak to a denial management representative., Yesenia Reed RN 07/15/2024 11:44:37 AM >[facility] is requesting that we enter an additional referral to neurosurgery related to the skull fracture. The earliest they can get her in for neurology is November 09 at 08:[address] Celine Oliver. Notified Yordy Lundberg. See referrals Clinical Notes [facility], Neurology - [facility] , [address] [place] [address], [address] [place] [address], , Referral Priority Urgent Referral Appointment Date 11/09/2024 Reason Headaches, indetermi anthony age skull fracture found on CT [facility] Neu[facility] recommended referral to neurosurgery Diagnosis 1 New daily persistent headache (G44.52) Diagnosis 2 Closed fracture of s kull, unspecified bone, initial encounter (S02.91XA) Referral Organization [facility] Referring Provider First Name Yordy Referring Provider Last Name Toño Referring Provider [facility] Referred Provider [facility] - Neurosurgery Referred Provider Specialty Neurosurgery General Notes PATIENT HAS AET[employer] COMMERCIAL INSURANCE - SEE ATTACHMENT PATIENT HAS A[employer] COMMERCIAL INSURANCE - SEE ATTACHMENT, Yesenia Reed RN 07/15/2024 02:36:07 PM >Referral faxed to [facility] for Outpatient [facility] Neurosurgery.Brianna RN, Stephanie N 07/16/2024 02:38:14 PM >Yesterday's fax was successfully sent. A letter was mailed to Melanie notifying her of this referral as well as appointment dates for her neurology and rheumatology referrals.Brianna RN, Stephanie N 07/16/2024 04:29:56 PM >Pt is requesting assistance with scheduling this referral. Will call office after 1 week (referral review) to see if referral can be scheduled yet. Clinical Notes [facility] - Neurosurgery, [address] [place] [address], [address], [address] [place] [address], Referral Priority Routine Reason severe headaches wit h abnormal optic fundi Diagnosis 1 Frequent headaches ( R51.9) Referral Organization [facility] Referring Provider First Name Gonzalez Referring Provider Last Name Mariano Referring Provider Speciality Internal M edicine Referred Provider Specialty Ophthalmolog y General Notes Cecile Alex 12:24:34 PM >Talked with [facility] [place] at [phone] & scheduled client for first available visit 10/21/24 at 03:[address] [facility]. Referral faxed to [facility] at . Client given [facility] appointment date, time, & address., Cecile Alex 11/05/2024 02:19:36 PM >Attempted to call client & unable to leave a message as mailbox was full. Client has a f/u tomorrow in office with MD Quintana., Cecile Alex 11/17/2024 04:18:48 PM >Client reported that she had this completed & everything cam back WNL. Clinical Notes [facility], [address] [place] [address], , Fax: Referral Priority Stat Medications Medication SIG (Take, Route, Frequency, Duration) Notes Start Date End Date Status Phentermine HCl 37.5 MG 1 tablet before breakfast Orally Once a day 04/03/2024 Not-Taking HYDROcodone-Acetaminoph en 5-325 MG 1 tablet as needed Orally twice a day for 3 days As needed severe, incapacitating headaches 11/03/2024 Active Senna 8.6 MG 1 tablet at bedtime as needed Orally Once a day for 30 days 07/23/2024 Not-Taking Ondansetron HCl 8 MG 1 tablet Orally twice a day As needed for nausea 07/23/2024 Not-Taking Meloxicam Not-Taking Ibuprofen 800 MG 1 tablet with food o r milk as needed Orally every 8 hrs Not-Taking Naproxen Sodium 550 MG 1 tablet with nba d or milk as needed Orally every 12 hrs 06/12/2024 Not-Taking Topamax 50 MG 1 tablet Orally Once a day for 30 days 06/12/2024 Not-Taking Fluticasone Propionate 50 MCG/ACT 1 spray in each nostril Nasally Twice a day for 30 days 06/12/2024 Not-Taking Social History Tobacco Use: Social History Observation Description Date Details (start date - stop date) Never Smoker NA - NA Sex Assigned At : Social History Observation Description Sex Assigned At Female Tobacco Control (Standard) Question Answer Notes Tobacco use: Nonsmoker Problems Problem Type SNOMED Code ICD Code Onset Dates Problem Status W/U Status Risk Notes Problem Tobacco user (075757724) Nicotine dependence, unspecified, uncomplicated (F17.200) Active confirmed Problem Overweight (208167665) Over weight (E66.3) Active confirmed Problem 941424044 Overweight (BMI 25.0-29.9) (E66.3) Active confirmed Problem 248628594386099 New daily persistent headache (G44.52) Active confirmed Problem Tobacco user (402655292) Vaping nicotine dependence, 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) Active confirmed Vital Signs Heart Rate 76 /min 11/06/2024 Temperature 98.2 degrees Fahrenheit 10/16/2024 Respiratory Rate 16 /min 11/06/2024 Blood pressure diastolic 68 mm Hg 11/06/2024 Oximetry 99 % 11/06/2024 Height 62 in 11/06/2024 Blood pressure systolic 102 mm Hg 11/06/2024 Weight 174.6 lbs 11/06/2024 BMI 31.93 kg/m2 11/06/2024 Encounters Encounter Location Date Provider Diagnosis [address] [place] [address] 11/20/2023 Yordy Lundberg Obesity (BMI 30-39.9 ) E66.9 ; Medication management Z79.899 ; Nutritional counseling Z71.3 and Nicotine dependence, unspecified, uncomplicated F17.[address] [place] [address] 01/23/2024 Yordy Lundberg Obesity (BMI 30-39.9 ) E66.9 ; Nutritional counseling Z71.3 ; Pain, joint, ankle, right M25.571 and Nicotine dependence, unspecified, uncomplicated F17.[address] [place] [address] 02/28/2024 Yordy Lundberg Pain in right ankle and joints of right foot M25.571 ; Obesity (BMI 30-39.9) E66.9 ; Nutritional counseling Z71.3 and Nicotine dependence, unspecified, uncomplicated F17.[address] [address] 04/03/2024 Yordy Lundberg Obesity (BMI 30-39.9 ) E66.9 ; Nutritional counseling Z71.3 and Nicotine dependence, unspecified, uncomplicated F17.[address] [address] 04/17/2024 Yordy Lundberg Bruising T14.8XXA ; Hair loss L65.9 ; Screening for metabolic disorder Z13.228 ; Screening for deficiency anemia Z13.0 ; Screening, lipid Z13.220 ; Screening for HIV (human immunodeficiency virus) Z11.4 ; Ingrown toenail L60.0 ; Overweight (BMI 25.0-29.9) E66.3 ; Nutritional counseling Z71.3 and Nicotine dependence, unspecified, uncomplicated F17.[address] [address] 04/17/2024 Yordy Lundberg Screening for HIV (human immunodeficiency virus) Z11.4 ; Hair loss L65.9 ; Screening for deficiency anemia Z13.0 ; Bruising T14.8XXA and Screening, lipid Z13.[address] [address] 05/15/2024 Yordy Lundberg Hair loss L65.9 ; Flushing R23.2 ; Cervical cancer screening Z12.4 ; Family history- stomach cancer Z80.0 ; Family history of colon cancer Z80.0 ; Overweight (BMI 25.0-29.9) E66.3 ; Nutritional counseling Z71.3 and Nicotine dependence, unspecified, uncomplicated F17.[address] [address] 06/12/2024 Yordy Lundberg Hair loss L65.9 ; Frequent headaches R51.9 ; Mid back pain M54.9 ; Elevated antinuclear antibody (MC) level R76.8 ; Overweight (BMI 25.0-29.9) E66.3 ; Nutritional counseling Z71.3 and Nicotine dependence, unspecified, uncomplicated F17.200 [facility] [address] [place] [address] 06/24/2024 Yordy Lundberg New daily persistent headache G44.52 ; Closed fracture of skull, unspecified bone, initial encounter S02.91XA ; Overweight (BMI 25.0-29.9) E66.3 ; Nutritional counseling Z71.3 and Nicotine dependence, unspecified, uncomplicated F17.[address] [address] 07/23/2024 Yordy Lundberg Frequent headaches R51.9 ; Nausea R11.0 ; Drug-induced constipation K59.03 ; Overweight (BMI 25.0-29.9) E66.3 ; Nutritional counseling Z71.3 and Nicotine dependence, unspecified, uncomplicated F17.[address] [address] 08/21/2024 Yordy Lundberg Frequent headaches R51.9 ; Obesity (BMI 30-39.9) E66.9 ; Nutritional counseling Z71.3 and Nicotine dependence, unspecified, uncomplicated F17.[address] [address] 09/22/2024 Yordy Lundberg Frequent headaches R51.9 ; Obesity (BMI 30-39.9) E66.9 ; Nutritional counseling Z71.3 and Nicotine dependence, unspecified, uncomplicated F17.200 [facility] [address] [place] [address] 10/16/2024 Gonzalez Quintana Frequent headaches R51.9 ; Vaping nicotine dependence, tobacco product F17.290 and Over weight E66.3 [facility] [address] [place] [address] 11/06/2024 Gonzalez Quintana Over weight E66.3 an d Frequent headaches R51.9 [facility] [address] [place] [address] 11/17/2024 Gonzalez Quintana [address] [place] [address] 04/27/2024 Yordy Lundberg [address] [address] 06/18/2024 Yordy Lundberg [facility] [address] [place] [address] 06/24/2024 Yordy Lundberg [facility] [address] [place] [address] 06/24/2024 Yordy Lundberg [address] [place] [address] 06/26/2024 Yordy Lundberg New daily persistent headache G44.[address] [place] [address] 07/03/2024 Yordy Lundberg [address] [address] 07/06/2024 Yordy Lundberg [facility] [address] [place] [address] 08/10/2024 Yordy Lundberg Frequent headaches R51.9 and Drug-induced constipation K59.[address] [place] [address] 08/17/2024 Yordy Lundberg Nausea R11.[address] [place] [address] 09/14/2024 Yordy Lundberg Frequent headaches R51.[address] [place] [address] 09/24/2024 Yordy Lundberg [address] [place] [address] 11/03/2024 Gonzalez Quintana Frequent headaches R51.9 [facility] [address] [place] [address] 11/03/2024 Gonzalez Quintana Frequent headaches R51.9 Assessments Encounter Date Diagnosis (ICD Code) Assessment Notes Treatment Notes Treatment Clinical Notes Section Notes 11/20/2023 Medication management (ICD-10 - Z79.899) 11/20/2023 Obesity (BMI 30-39.9) (ICD-10 - E66.9) 01/23/2024 Obesity (BMI 30-39.9) (ICD-10 - E66.9) 01/23/2024 Nutritional counseling (ICD-10 - Z71.3) 02/28/2024 Pain in right ankle and joints of right foot (ICD-10 - M25.571) X-ray results obtained, nl. Will refer to ortho for eval given surgical hx and hardware. Consider PT if ok with ortho. 02/28/2024 Obesity (BMI 30-39.9) (ICD-10 - E66.9) 04/03/2024 Obesity (BMI 30-39.9) (ICD-10 - E66.9) 04/03/2024 Nutritional counseling (ICD-10 - Z71.3) 04/17/2024 Hair loss (ICD-10 - L65.9) 04/17/2024 Bruising (ICD-10 - T14.8XXA) 05/15/2024 Flushing (ICD-10 - R23.2) 04/17/2024 Screening for HIV (human immunodeficiency virus) (ICD-10 - Z11.4) 05/15/2024 Hair loss (ICD-10 - L65.9) 06/12/2024 Hair loss (ICD-10 - L65.9) 06/12/2024 Frequent headaches (ICD-10 - R51.9) 06/24/2024 New daily persistent headache (ICD-10 - G44.52) 06/24/2024 Closed fracture of skull, unspecified bone, initial encounter (ICD-10 - S02.91XA) 06/26/2024 New daily persistent headache (ICD-10 - G44.52) 07/23/2024 Nausea (ICD-10 - R11.0) 07/23/2024 Frequent headaches (ICD-10 - R51.9) 08/10/2024 Frequent headaches (ICD-10 - R51.9) 08/17/2024 Nausea (ICD-10 - R11.0) 08/21/2024 Obesity (BMI 30-39.9) (ICD-10 - E66.9) 08/21/2024 Frequent headaches (ICD-10 - R51.9) 09/14/2024 Frequent headaches (ICD-10 - R51.9) 09/22/2024 Obesity (BMI 30-39.9) (ICD-10 - E66.9) 10/16/2024 Vaping nicotine dependence, tobacco product (ICD-10 - F17.290) 10/16/2024 Frequent headaches (ICD-10 - R51.9) ABNORMAL OPTIC FUNDI WORRISOME FOR INCREASED INTRACRANIAL PRESSURE VS INTRAOPTIC PRESSURE. VI EXAM BOOKED WITH [facility] FOR 10/21/2024. TO GO TO ED IF NEW OR WORSE SYMPTOMS DEVELOP. 11/03/2024 Frequent headaches (ICD-10 - R51.9) 11/03/2024 Frequent headaches (ICD-10 - R51.9) 11/06/2024 Over weight (ICD-10 - E66.3) 11/06/2024 Frequent headaches (ICD-10 - R51.9) SEE NEUROLOGY AT [facility][1] ON 11/09. CALL FOR REFILL OR TO SCHEDULE SCAN WITH CONTRAST IF NEEDED. 09/22/2024 Frequent headaches (ICD-10 - R51.9) 10/16/2024 Over weight (ICD-10 - E66.3) 09/22/2024 Nutritional counseling (ICD-10 - Z71.3) 08/21/2024 Nutritional counseling (ICD-10 - Z71.3) 08/10/2024 Drug-induced constipation (ICD-10 - K59.03) 07/23/2024 Drug-induced constipation (ICD-10 - K59.03) 06/24/2024 Overweight (BMI 25.0-29.9) (ICD-10 - E66.3) 06/12/2024 Mid back pain (ICD-10 - M54.9) 05/15/2024 Cervical cancer screening (ICD-10 - Z12.4) 04/17/2024 Screening for metabolic disorder (ICD-10 - Z13.228) 04/17/2024 Hair loss (ICD-10 - L65.9) 02/28/2024 Nutritional counseling (ICD-10 - Z71.3) 04/03/2024 Nicotine dependence, unspecified, uncomplicated (ICD-10 - F17.200) 01/23/2024 Pain, joint, ankle, right (ICD-10 - M25.571) 11/20/2023 Nutritional counseling (ICD-10 - Z71.3) 01/23/2024 Nicotine dependence, unspecified, uncomplicated (ICD-10 - F17.200) 11/20/2023 Nicotine dependence, unspecified, uncomplicated (ICD-10 - F17.200) 02/28/2024 Nicotine dependence, unspecified, uncomplicated (ICD-10 - F17.200) 04/17/2024 Screening for deficiency anemia (ICD-10 - Z13.0) 05/15/2024 Family history- stomach cancer (ICD-10 - Z80.0) 04/17/2024 Screening for deficiency anemia (ICD-10 - Z13.0) 06/12/2024 Elevated antinuclear antibody (MC) level (ICD-10 - R76.8) 06/24/2024 Nutritional counseling (ICD-10 - Z71.3) 07/23/2024 Overweight (BMI 25.0-29.9) (ICD-10 - E66.3) 08/21/2024 Nicotine dependence, unspecified, uncomplicated (ICD-10 - F17.200) 09/22/2024 Nicotine dependence, unspecified, uncomplicated (ICD-10 - F17.200) 07/23/2024 Nutritional counseling (ICD-10 - Z71.3) 06/24/2024 Nicotine dependence, unspecified, uncomplicated (ICD-10 - F17.200) 06/12/2024 Overweight (BMI 25.0-29.9) (ICD-10 - E66.3) 04/17/2024 Bruising (ICD-10 - T14.8XXA) 05/15/2024 Family history of colon cancer (ICD-10 - Z80.0) 04/17/2024 Screening, lipid (ICD-10 - Z13.220) 04/17/2024 Screening for HIV (human immunodeficiency virus) (ICD-10 - Z11.4) 05/15/2024 Overweight (BMI 25.0-29.9) (ICD-10 - E66.3) 04/17/2024 Screening, lipid (ICD-10 - Z13.220) 06/12/2024 Nutritional counseling (ICD-10 - Z71.3) 07/23/2024 Nicotine dependence, unspecified, uncomplicated (ICD-10 - F17.200) 06/12/2024 Nicotine dependence, unspecified, uncomplicated (ICD-10 - F17.200) 05/15/2024 Nutritional counseling (ICD-10 - Z71.3) 04/17/2024 Ingrown toenail (ICD-10 - L60.0) 04/17/2024 Overweight (BMI 25.0-29.9) (ICD-10 - E66.3) 05/15/2024 Nicotine dependence, unspecified, uncomplicated (ICD-10 - F17.200) 04/17/2024 Nutritional counseling (ICD-10 - Z71.3) 04/17/2024 Nicotine dependence, unspecified, uncomplicated (ICD-10 - F17.200) 10/16/2024 Other pdmp noted for rx from [facility] for opioid analgesics. Plan Of Treatment Pending Test Test Name Order Date MRI : Brain without Contrast 08/21/2024 Future Test Test Name Order Date MRI : Brain without Contrast 11/03/2024 Next Appt Details Provider Name:Gonzalez Quintana , 12/04/2024 02:40:00 PM, [address], [place], [address], Medical (General) History Surgical History Surgery Date(Month/Year) Cage 3-6 vertebrae 2017 2 plates and 12 screws in right ankle 20 19 2 plates 7 screws in right wrist 2019 cholecystectomy 2023 Hospitalization History Reason Date(Month/Year)
--- OUTSIDE RECORDS SUMMARY | 2024-11-17 16:33 | XMS_ITS | Clinical Summary ---
Author Organization [facility] Address [address] [place] [address] [place] [address] Phone Care Team Providers Care Global President Name Role Phone Yordy Lundberg APRN, CNP Primary Care Provid er Social History Tobacco Use Types Packs/Day Years Used Date Smoking Tobacco: Never Assessed Comments Unknown Sex and Gender Information Value Date Recorded Sex Assigned at Female 08/13/2024 12:53 PM JUNIOR BUSINESS ANALYST Legal Sex Female 4:31 PM JUNIOR BUSINESS ANALYST Gender Identity Female 08/13/2024 12:53 PM JUNIOR BUSINESS ANALYST Sexual Orientation Not on file Plan of Treatment Health Maintenance Due Date Last Done Comments Hepatitis C Virus (HCV) Screening 1982 Mammogram 1982 TdaP Immunization 1982 Pap Smear 2003 Cervical Cancer Screening (CCS) 2012 HPV/Cotest 2012 Discussion re Starting/Frequency of Mammograms 2022 SARS-COV-2 Immunization ( season) 2024 Influenza Immunization (Seas on Ended) 2025 Respiratory Syncytial Virus (RSV) Immunization (Adult) (1 - 1-dose 75+ series) 2057 Hepatitis B Immunization Completed 001, 04/17/2000, 02/12/2000 Human Papillomavirus (HPV) Immunization Aged Out No longer eligible b ased on patient's age to complete this topic Meningococcal Immunization (ACWY) Aged Out No longer eligible b ased on patient's age to complete this topic Pneumococcal Immunization Combined Aged Out No longer eligible b ased on patient's age to complete this topic Rotavirus Immunization Aged Out No lo nger eligible based on patient's age to complete this topic Insurance [facility] Care Teams Global President Relationship Specialty Start Date End Date Yordy Lundberg, SPECIALIST EMPLOYEE LABOR RELATIONS, [employer] [address] [place] [address] [place] [address] PCP - General Advanced Practice Nurse 05/22/24
[2024-11-17 16:37] VITALS: BP 104/69; PULSE 81; RESP 16; TEMP 36.7; O2SAT 99
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
--- NOTE | 2024-11-17 17:09 | PC.NURSE ---
Pt. denies any nausea. Reglan not administered.
--- NOTE | 2024-11-17 17:13 | PC.NURSE ---
Pt. states she would now like the reglan. Pt. also confirms she is not driving home.
[2024-11-17] MEDS: diphenhydrAMINE HCl CAP 25 MG CAPSULE PO (17:14)
[2024-11-17] MEDS: METOCLOPRAMIDE HCL 10 MG TABLET PO (17:14)
[2024-11-17] MEDS: KETOROLAC 30 MG/ML VIAL (*BKC) IM (17:14)
[2024-11-17 17:30] VITALS: BP 119/80; PULSE 67; RESP 16; TEMP 36.4; O2SAT 100
--- OUTSIDE RECORDS SUMMARY | 2024-11-17 17:59 | XMS_ITS | Clinical Summary ---
Author Organization [facility] Address [address] [place] [id number] Care Team Providers Care Finance Intern Name Role Phone Unavailable Primary Care Provider [...]
--- OUTSIDE RECORDS SUMMARY | 2024-11-17 17:59 | XMS_ITS | Clinical Summary ---
Author Organization [facility] Address [address] [place] [address] [place] [address] Phone Care Team Providers Care Fixture Designer Name Role Phone Yordy Lundberg APRN, CNP Primary Care Provid er Social History Tobacco Use Types Packs/Day Years Used Date Smoking Tobacco: Never Assessed Comments Unknown Sex and Gender Information Value Date Recorded Sex Assigned at Female 08/13/2024 12:53 PM CLOTH FRAMER Legal Sex Female 4:31 PM CLOTH FRAMER Gender Identity Female 08/13/2024 12:53 PM CLOTH FRAMER Sexual Orientation Not on file Plan of [...] patient's age to complete this topic Insurance [facility] Care Teams Fixture Designer Relationship Specialty Start Date End Date Yordy Lundberg, SOUND EFFECTS PERSON, LAB DIRECTOR [address] [place] [address] [place] [address] PCP - General Advanced Practice Nurse 05/22/24
--- OUTSIDE RECORDS SUMMARY | 2024-11-17 17:59 | XMS_ITS | Encounter Summary ---
Author Organization [facility] Address [address] [place] [address] Care Team Providers Care Community Engagement Representative Name Role Phone Yordy Lundberg NP Primary Care Provider +1- [phone] Reason for Visit * Reason Onset Date Comments Med Refill 11/16/2024 Encounter Details Date Type Department Care Team (Late st Contact Info) Description 11/16/2024 Telephone [facility] [address] [place] [address] Health 4th Floor [address] [place] [address] Sylvia Bear Med Refill Social [...] Description 12/18/2024 8:30 AM CDT Hospital Encounter [facility] [address] [place] [address] Dipika Deshpande MD [address] [place] [address] 12/18/2024 8:30 AM CDT - 12/18/2024 9:00 AM CDT Surgery [address] [address] Dipika Deshpande MD [address] [place] [address] [address] [place] [address] COLONOSCOPY Scheduled Procedures Name Priority Associated Diagnoses Date/Ti me COLONOSCOPY Family history of colon cancer Encounter for screening colonoscopy 12/18/2024 8:30 AM CDT documented as of this encounter Visit Diagnoses Not on filedocumented in this encounter Care Teams Community Engagement Representative Relationship Specialty Start Date End Date Yordy Lundberg NP [address] [facility] [place] [address] PCP - General Pain Management 05/26/24 documented as of this encounter
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
--- OUTSIDE RECORDS SUMMARY | 2024-11-17 17:59 | XMS_ITS | Data Portability ---
Author Organization [place] - [employer], Main Office Address [address] [place] [address] Assessment Encounter Date Assessment Date Assessment LastModified by Organization Details LastModified Time 07/22/2023 07/22/2023 43-year-old nikita sánchez presents for follow-up of her right ankle and evaluation of a new problem with her bilateral wrists. She reports her ankle is feeling much better, she is walking normally without any issues. She reports bilateral carpal tunnel symptoms have been going on for several years, and getting progressively worse recently. Her right side is worse than her left side. She has pain and numbness and tingling in the fingers and has difficulty with sleeping, wakes her up at night and she has to shake out her hands. She currently rates her pain as 9/10. She has been taking anti-inflammatorie s wearing night braces, but they are not effective. She did have injections into her carpal tunnel bilaterally about 2 years ago which was helpful. She denies any acute injury, although has a history of a right both-bone forearm ORIF 2019. She has nonantalgic gait, no tenderness around the ankle. She has subjective numbness and tingling in the middle and index fingers bilaterally. Positive Tinel's and Phalen's at the wrist. Positive Tinel's at the elbow bilaterally as well. She has 2+ radial pulse. 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 Good abduction strength X-rays of bilateral wrist were obtained reviewed, demonstrating no acute bony abnormality. She does have a history of ORIF as previously described on the right side Her ankle problems are resolved. With regards her bilateral carpal tunnel, we will repeat her cortisone injection since she had good results from the previous injection a couple years ago. She tolerated them well. We will also send her for EMG to confirm the diagnosis as well as confirm the cubital tunnel diagnosis. We will see her back in approximately 2 months, or sooner as needed. We discussed that the next step if the injections were to fail would be to consider surgery for carpal tunnel release. She is agreement with the plan. Not available 07/23/2023 09:45:15 11/11/2023 11/11/2023 43-year-old nikita sánchez presents for follow-up of her bilateral wrists. She has carpal tunnel symptoms that have failed extensive conservative management including bracing, anti-inflammatorie s, and previous cortisone injections. She still reports pain, numbness and tingling, and difficulty with making a closed fist. She currently rates her pain 7/10, worse on the left. Physical exam: She has subjective numbness tingling in the thumb, index, and middle fingers bilaterally. She has positive Tinel's and Phalen's at the wrist bilaterally. Negative Tinel's at the elbow. Negative Spurling. her previous incisions over the right forearm is well healed, out of the way of the carpal tunnel incision EMG report was reviewed, demonstrating bilateral median neuropathy given she has bilateral carpal tunnel confirmed on EMG, failing conservative management, we will proceed with surgery for carpal tunnel release. She wants to begin with her left side and we will stage her right side for 3 weeks afterwards, to give her wounds a chance to heal. Risks, benefits, and alternatives to surgery were discussed with the patient. Risks include but are not limited to pain, stiffness, infection, bleeding, blood clot, injury to other structures including nerves or blood vessels, need for future surgery, and anesthesia risks. We discussed the goal of surgery is to improve symptoms but there is no guarantee of improvement and it is possible the patient's condition is worse after surgery. Patient agreed and would like to proceed. Not available 11/11/2023 14:47:12 01/03/2024 01/03/2024 The patient has bilateral carpal tunnel syndrome she was scheduled to undergo surgical intervention for both hands but has elected to put this off for at least 6 months due to issues with her paid time off from work. She is requesting repeat cortisone injections therefore under sterile conditions I injected the patient's bilateral carpal tunnels today in the office with 2 cc of 0.5% Marcaine and 10 mg of Kenalog each. The patient tolerated the procedures well. We will see her back as needed we will get her a refill on her meloxicam 15 mg daily as well at her request. She voiced understanding agrees above plan she will let us know when she is ready to proceed with carpal tunnel releases. Not available 01/03/2024 11:42:19 02/27/2024 02/27/2024 status post robotic cholecystectomy for cholecystitis. Doing well overall. Follow up p.r.n. [email or web address] Not available 02/27/2024 11:25:05 03/31/2024 03/31/2024 The patient has bilateral carpal tunnel syndrome as described. She is trying to get by with conservative measures until the end of the year when she has paid time off she will be ready to undergo staged bilateral carpal tunnel releases. In the meantime she wanted to try 1 more shot of cortisone both hands therefore under sterile conditions I injected the patient's bilateral carpal tunnels in the office today with 2 cc of 0.5% bupivacaine and 10 mg of Kenalog each. The patient tolerated the procedures well. Two next time she returns she will see Dr. Fletcher to talk about carpal tunnel releases. She will continue with oral anti-inflammatory medication night splints and activity modification if she can. She voiced understanding agrees above plan she will call for any further problems difficulties or questions. Today we talked about the surgical procedure in detail including risks benefits limitations and alternatives procedure itself and recovery time afterwards. Not available 03/31/2024 10:27:05 Plan of Treatment Reminders Order Date Submit Date Provider Last Modified By Organization Details Last Modified Time Details Appointments None recorded. Lab None recorded. Referral None recorded. Procedures injection/a spiration joint/bursa (PROC) 2023 024 [email or web address] In-Office Order, Internal Use Only DO Not Attach Compendium DO Not Attach Compendium, Do Not Delete/merge, [id number] 10:10:08 injection/a spiration joint/bursa (PROC) - in office procedure, administere d by provider 2023 024 [email or web address] In-Office Order, Internal Use Only DO Not Attach Compendium DO Not Attach Compendium, Do Not Delete/merge, [id number] 11:42:38 injection/a spiration joint/bursa (PROC) 2023 024 [email or web address] In-Office Order, Internal Use Only DO Not Attach Compendium DO Not Attach Compendium, Do Not Delete/merge, [id number] 12:37:04 Surgeries None recorded. Imaging XR, wrist, 3 or more view 2023 024 [facility], [address], [place], [address], 4 13:01:53 electromyog eliu + nerve conduction study - Please contact pt to schedule apt for EMG/NCS 2023 BERNA Scherer, [address] [facility] , [place], [address], 4 16:18:16 Medication Orders bupivacaine HCl 0.5 % (5 mg/mL) injection solution 2023 024 [email or web address] [id number], [address], [place], [address], 4 11:56:05 Kenalog 10 mg/mL suspension for injection 2023 024 [email or web address] [id number], [address], [place], [address], 4 11:56:05 Marcaine (PF) 0.5 % (5 mg/mL) injection solution 2023 024 [email or web address] [id number], [address] , [place], [address], 4 10:07:49 Kenalog 10 mg/mL suspension for injection 2023 024 [email or web address] [id number], [address], [place], [address], 4 10:07:43 meloxicam 15 mg tablet 2023 024 [email or web address] [id number], [address], [place], [address], 4 14:06:51 bupivacaine HCl 0.5 % (5 mg/mL) injection solution 2023 024 [email or web address] [id number], [address], [place], [address], 4 10:07:36 Kenalog 10 mg/mL suspension for injection 2023 024 [email or web address] [id number], [address], [place], [address], 4 10:07:43 Patient TargetsNo targets recorded. Patient InstructionsNo instructions recorded. Reason for Referral None Reported. Results Created Date Observation Date Name Description Value Unit Range Abnormal Flag Note LastModifiedBy Organization Detail LastModifiedTime 07/22/19 24 XR, wrist , 3 or more view No observ ation record ed. [email or web address] [facility] [address], [place], [address], 07/22/2023 11:53:07 11/12/19 24 elect romyo gram + nerve condu ction study No observ ation record ed. [email or web address] Brandon Scherer [address] [place], [address], 11/12/2023 16:18:16 Result Notes None recorded. Problems Name Problem SNOMED Code Status Onset Date Resolution Date Notes Provider Name and Address Organization Details Recorded Time Pain of right ankle joint 46676580361390 106 Active 2022 VIKTOR Pollack, [place] [facility] [employer] [facility] 3 09:52:23 Bilateral wrist pain 47379797009618 105 Active 2023 Belinda Payne , ATC L null, [facility] [email or web address] [facility] 11:52:58 Bilateral carpal tunnel syndrome 79164264760173 101 Active 2023 Evan Fletcher MD [address] [facility], [facility] [address], [place], [address], [facility] [email or web address] [facility] 14:47:16 Problem Notes None recorded. Procedures Surgical History Date Name Laterality Status Provider Name and Address Organization Details Recorded Time Ortho - Cortisone Injection completed Evan Fletcher MD [address] [facility], [facility] [address], [place], [address], [facility] [email or web address] [facility] 07/23/2023 09:42:19 Neck Surgeries completed Aleida boykin, [facility] [email or web address] [facility] 04/01/2023 09:51:10 Imaging Results Imaging Date Name Status LastModified by Organization Details LastModified Time 07/22/2023 XR, wrist, 3 or more view completed [email or web address] [facility] [address] [facility], [place], [address], 07/22/2023 11:53:07 11/12/2023 electromyogram + nerve conduction study completed [email or web address] [address], [address], 11/12/2023 16:18:16 Procedure Notes None recorded. Medical Equipment None Reported. Allergies No known drug allergies Medications Name Sig Start Date Stop Date Status Note LastModified by Organization Details LastModified Time amoxicillin 500 mg capsule TAKE 1 CAPSULE BY MOUTH 4 TIMES DAILY UNTIL FINISHED 03/31 completed Not Available Not Available Not Available acetaminoph en 325 mg tablet PLEASE SEE ATTACHED FOR DETAILED DIRECTION S active Not Available Not Available No t Available ibuprofen 800 mg tablet TAKE 1 TABLET BY MOUTH EVERY 6 TO 8 HOURS NEEDED active Not Available Not Available No t Available meloxicam 15 mg tablet Take 1 tablet every day by oral route. active Not Available Not Available No t Available bupivacaine HCl 0.5 % (5 mg/mL) injection solution Take 20 mg by injection route. 2023 active Not Available Not Available Not Avai lable metronidazo le 500 mg tablet TAKE ONE TABLET BY MOUTH EVERY TWELVE HOURS FOR 7 DAYS 03/31 completed Not Available Not Available Not Available Kenalog 10 mg/mL suspension for injection Take 20 mg by injection route. [address] [facility]: 0003- [phone]- 20 Not Available Not Available Not Available pantoprazol e 40 mg tablet,francesco yed release TAKE 1 TABLET BY MOUTH EVERY DAY active Not Available Not Available No t Available oseltamivir 75 mg capsule TAKE 1 CAPSULE BY MOUTH TWICE A DAY 03/31 completed Not Available Not Available Not Available amoxicillin 875 mg-potassiu m clavulanate 125 mg tablet TAKE 1 TABLETBY MOUTH 2 TIMES A DAY X 7 DAYS 03/31 completed Not Available Not Available Not Available oxycodone 5 mg tablet TAKE 1 TABLET BY MOUTH EVERY 4 HOURS NEEDED FOR MODERATE PAIN (PAIN SCALE 4 TO 6) 03/31 completed Not Available Not Available Not Available neomycin-po lymyxin-hyd rocort 3.5 mg-10,000 unit/mL-1 % ear drops,susp INSTILL 3 DROPS IN BOTH EARS 4 TIMES A DAY FOR 7 DAYS 03/31 completed Not Available Not Available Not Available Marcaine (PF) 0.5 % (5 mg/mL) injection solution Take 20 mg by injection route. 03/31 completed Not Available Not Available Not Available ibuprofen 800 mg active Not Available Not Natacha ilable Not Available Vitals Date Recorded Body height Body mass index (BMI) Body weight Provider Name and Address Organization Details Last Updated DateTime 07/22/2023 157.48 cm 32.9 kg/m2 36886.63 g Belinda Payne ATC L [facility] [employer] 07/22/2023 11:50:26 Date Recorded Body height Body mass index (BMI) Body weight Pain severity - 0-10 verbal numeric rating [Score] - Reported Provider Name and Address Organization Details Last Updated DateTime 11/11/2023 157.48 cm 32 kg/m2 05651.66 g VIKTOR Quinones [employer] [facility] [employer] 11/11/2023 12:31:31 Date Recorded Body height Body mass index (BMI) Body weight Provider Name and Address Organization Details Last Updated DateTime 01/03/2024 157.48 cm 30.5 kg/m2 54666.93 g Ann Linton, [facility] [employer] [facility] 01/03/2024 10:56:17 Date Recorded Body height Body mass index (BMI) Body weight Provider Name and Address Organization Details Last Updated DateTime 02/27/2024 157.48 cm 30.5 kg/m2 93679.93 jayshree Newtonsnedra [facility] [employer] [facility] 02/27/2024 11:01:38 Date Recorded Body height Body mass index (BMI) Body weight Provider Name and Address Organization Details Last Updated DateTime 03/31/2024 157.48 cm 29.6 kg/m2 81658.96 g Angela Mathew [facility] [employer] [facility] 03/31/2024 10:06:59 Social History None recorded. Functional Status Question Answer Note LastModified by Organization D etails LastModified Time What is your level of alcohol consumption? Moderate [email or web address] Information not available 03/31/2024 Mental Status None recorded. Family History Relationship Description Onset Age of this Age Resolved Age Notes LastModified by Organization Details LastModified Time Father Family history of malignant neoplasm [email or web address] Not available 2022 09:50:46 Sister Diabetes mellitus [email or web address] Not available 2022 09:50:56 Notes:cancer-dad's side Medical History No medical history recorded. Gynecological HistoryNo gynecological history recorded. Obstetrics History GPAL:G 0 P 0 0 0 0 Past Encounters Encounter ID Performer Location Encounter Start Date Encounter Closed Date Diagnosis/Indication Diagnosis SNOMED-CT Code Diagnosis ICD10 Code Diagnosis Note [id number] Evan Fletcher MD [facility] [address] [address] 04/01/2023 09:26:39 04/01/2023 10:45:29 Pain of right ankle joint 5975444591 1400089 M25.920 [id number] Evan Fletcher MD [facility] [address] 06/10/2023 09:27:33 06/10/2023 10:14:56 Pain of right ankle joint 7999746237 4873022 M25.021 [id number] Evan Fletcher MD [facility] [address] 07/22/2023 11:47:29 07/22/2023 12:16:13 Bilateral wrist pain 9767755017 4016655 M25.531 M25.730 [id number] Evan Fletcher MD [address] [address] 11/11/2023 12:23:38 11/11/2023 13:25:47 Bilateral wrist pain 1998586099 3416060 M25.531 M25.532 Bilateral carpal tunnel syndrome 3892564901 7585911 G56.03 [id number] Evan Fletcher MD [facility] [address] [place] [address] 01/03/2024 10:50:53 01/03/2024 11:43:45 Bilateral carpal tunnel syndrome 3897153146 0184754 G56.03 [id number] Liu tolbert MD [facility] General Surgery [address], [address] [place] [address] 02/27/2024 10:46:33 02/27/2024 11:25:57 [id number] Evan Fletcher MD [address] [address] 03/31/2024 09:51:37 03/31/2024 10:33:58 Bilateral wrist pain 2621690957 3153996 M25.531 M25.532 Bilateral carpal tunnel syndrome 7938974380 2385301 G56.03 Health Concerns Section Related Observation LastModified by Organization Detai ls LastModified Time None Recorded Concern Status LastModified by Organization Details LastModified Time None Recorded Advance Directives Directive None Recorded Payers Encounter Date Sequence Insurance Name Policy Number Policy Duvall Covered Member ID Duvall Member ID Guarantor Name 07/22/2023 1 [employer] [facility] ON OR AFTER 06/07/2020 (MEDICAID REPLACEMENT - HMO) Melanie Bolaños [id number] Melanie Kelly 11/11/2023 1 [employer] [id number] Melanie Kelly [id number] Melanie Kelly 01/03/2024 1 [employer] [id number] Melanie Kelly [id number] Melanie Kelly 02/27/2024 1 [employer] [id number] Melanie Kelly [id number] Melanie Kelly 03/31/2024 1 [employer] [id number] Melanie Kelly [id number] Melanie Kelly Notes Date Note Type Note Provider Name and Address Organization Details Recorded Time 01/03/2024 text/html Patient returns complaining of bilateral hand numbness and tingling she had an EMG study which showed bilateral carpal tunnel syndrome. She failed conservative measures to date. She saw Dr. Fletcher who recommended staged carpal tunnel releases she saw him in early November of this year. 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 In order for her to qualify for off work benefits and have enough time off she is going to have to wait for surgery until probably next July by her report. In the meantime she is wanting to have bilateral carpal tunnels injected. She had this done about 6 months ago and gave her good relief for 4-5 months but then her symptoms returned. In order to buy her more time until she can have enough paid time off from work she has elected to have these injected again today. Denies any new trauma or injury to either hand continues have carpal tunnel type symptoms. INDIA Arambula [address], [place], [address], [employer] 01/03/2024 11:43:05 02/27/2024 text/html overall doing we ll. Complains of some periumbilical pain still. Tolerating a diet. Liu Rubio MD [address], [place], [address], [employer] 02/27/2024 11:25:07 03/31/2024 text/html Patient returns for recheck of both hands. She has bilateral carpal tunnel syndrome noted on previous EMG nerve conduction velocity testing history and exam. She was scheduled to undergo staged bilateral carpal tunnel releases previously but due to other issues with her health including having to have her gallbladder removed she has lost her paid time off at work and had to delay carpal tunnel releases. She would like to consider this early next year previous cortisone injection in the bilateral carpal tunnels has given her some relief previously she would like to have 1 more injection to get her through the end of the year so she can come back and have surgery when she has more paid time off. She is going to talk to her work about light duty to minimize the amount of time she is out of work. She uses her hands all day long and she has numbness and tingling this aggravates her symptoms with heavy repetitive activities. Denies any new trauma or injury no new problems she currently is on meloxicam and use his night braces despite this her symptoms continue. The patient's previous x-rays are reviewed with her today she is noted to have previous both-bone fracture of the distal forearm with plate and screws in the distal shafts of the ulna and radius of the right forearm. Old scars healed well. No other significant findings noted on her previous x-rays New past medical history sheet was reviewed and signed on intake sheet of today's date drug allergies current medications family social history previous surgical history 10 point review of systems was reviewed and discussed in detail today with the patient. INDIA Arambula [address] [facility], [facility] [address], [place], [address], [place] [facility] [employer] 03/31/2024 10:28:40 OBGyn Episode No OBEpisode recorded.
--- OUTSIDE RECORDS SUMMARY | 2024-11-17 17:59 | XMS_ITS | Referral Summary ---
Author Organization [facility] Address [address] [place] [address] Care Team Providers Care Patient Financial Rep Name Role Phone Yordy Lundberg NP Primary Care Provider [phone] Encounters Date Type Department Care Team Description 11/16/2024 Telephone [facility] [address] [place] [address] [facility] Floor [address] [place] [phone] Sylvia Bear Med Refill 11/09/2024 10:15 AM CDT Lab [facility] [address] [place] [address] [place] [address] New daily persistent headache 11/09/2024 8:30 AM CDT Office [facility] [address] [place] [address] [facility] Floor [address] [place] [phone] Celine Oliver MD Other headache syndrome (Primary Dx); Closed fracture of skull, unspecified bone, initial encounter (HCC) 09/25/2024 9:00 AM CDT Lab [facility] Endocrinology Metabolism and Lipid [address] [place] [address] [place] [phone] Elevated antinuclear antibody (MC) level; Hair loss 09/25/2024 8:00 AM CDT Office Visit [facility] Rheumatology [facility] [address] [place] [phone] Janette Ritter NP Hair loss (Primary Dx); [...] Description 12/18/2024 8:30 AM CDT Hospital Encounter [address] [id number] Dipika Deshpande MD [address] [place] [address] 12/18/2024 8:30 AM CDT - 12/18/2024 9:00 AM CDT Surgery [address] [id number] Abernathy MD [address] [place] [address] COLONOSCOPY Scheduled Procedures Name Priority Associated Diagnoses [...] LAB BLOOD ORDERABLES Fin al Result [facility] Department [place] [address] * Basic metabolic panel (11/09/2024 10:34 AM CDT) Pathologist [facility] Sodium 140 135 - 145 mmol/L Potassium, pl 4.5 3.3 - 4.9 mmol/L [facility] Comment:Hemolyzed; Potassium value may be falsely elevated by as much as 0.3-0.5 mmol/L. Suggest redraw and reanalysis. Chloride 102 97 - 110 mmol/L [facility] CO2 29 22 - 32 mmol/L [facility] Anion gap 9 2 - 15 mmol/L [facility] BUN 15 6 - 25 mg/dL [facility] Creatinine 0.71 0.60 - 1.10 mg/dL [facility] Glucose 81 70 - 199 mg/dL [facility] Comment: Interpretive Data Fasting glucose >/= 126 [...] 2022. Calcium 9.9 8.5 - 10.3 mg/dL [facility] Blood 11/09/2024 10:3 4 AM CDT 11/09/2024 11:49 AM CDT Narrative [facility] - 11/09/2024 12:24 PM CDT Has the patient fasted?->No us Celine Oliver MD LAB BLOOD ORDERABLES Fin al Result [facility] Department [place] [address] * TSH (09/25/2024 9:11 AM CDT) Pathologist [facility] TSH (Thyrotropin) 0.93 0.27 - 4.20 uIU/mL [facility] Blood 09/25/2024 9:11 AM CDT 09/25/2024 9:31 AM CDT Janette Ritter TELEVISION SERVICE ENGINEER LAB BLOOD ORDERABLES Final Result [facility] from Last 3 Months Insurance [facility] Care Teams Patient Financial Rep Relationship Specialty Start Date End Date Yordy Lundberg NP [address] [place] [address] [place] [address] PCP - General Pain Management 05/26/24
--- NOTE | 2024-11-17 18:22 | PC.NURSE ---
Pt. states I'm ready to leave. My headache is gone. INDIA Urbina notified. Per PA, she will put in d/c paperwork. Pt. updated.
--- NOTE | 2024-11-17 18:23 | PC.NURSE ---
INDIA Urbina at bedside talking with pt.
== END 2024-11-17 18:31 | disposition home or self-care (01) ==
PROVIDERS: Emergency Provider Physician Assistant; PCP Internal Medicine
DX: R51.9 Headache, unspecified (principal)
CPT/HCPCS: 96372; 99283; A9270; J1885

== ENCOUNTER 2024-12-31 06:56 | Outpatient (CLI) | payer OTHER, SELFPAY ==
--- NOTE | ~2024-12-31 | MR_ITS ---
MRI of the brain Clinical History: Vascular headache Technique: Axial and sagittal T1-weighted images were acquired. These were followed by axial T2-weigh stefania, diffusion weighted, gradient, and FLAIR images. Following intravenous administration of 15 cc Mu ltiHance gadolinium, T1-weighted fat-sat imaging was performed in the axial, coronal, and sagittal pl anes. COMPARISON: 11/03/2024 Findings: No abnormal signal seen in the brain parenchyma. No acute infarct, intracranial hemorrhage, or mass lesion. Ventricles and subarachnoid spaces are unremarkable. Orbits are unremarkable. Paranasal sinuses and m astoid air cells are clear. Major intracranial flow voids are intact. Sagittal midline structures are intact. No abnormal postcontrast enhancement identified. IMPRESSION: Unremarkable exam. Reviewed, dictated and finalized at location . IMPRESSION: Unremarkable exam.
== END 2024-12-31 06:57 | disposition home or self-care (01) ==
PROVIDERS: PCP Internal Medicine; Visit Provider Internal Medicine
DX: G44.1 Vascular headache, not elsewhere classified (principal)
CPT/HCPCS: 70553; A9577